=== PATIENT | female | born 1975 | race Caucasian/White ===

== ENCOUNTER 2018-06-27 01:02 | Inpatient (IN) | payer OTHER, SELFPAY ==
[2018-06-27 01:08] VITALS: BP 155/116; PULSE 65; RESP 16; TEMP 36.8
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
[2018-06-27] MEDS: Haloperidol 5 MG TAB PO (01:32)
[2018-06-27] MEDS: LORazepam 1 MG TAB PO (01:32)
--- NOTE | 2018-06-27 01:47 | PDOC.ERCMPRO ---
Date of Service: 06/27/18 Time of Service: 01:47 Care Management Progress Note Daphne is a 42 year old female currently being evaluated in the ED and awaiting mental health evaluation. Dr. Valenzuela requesting an interim safety plan be put into place while Daphne is being evaluated for SI/HI and awaiting medical clearance. Daphne was brought to the ED by [facility] for psychiatric evaluation and stabilization. The following safety plan is being initiated and a licensed one on one has been requested to observe Daphne while in the ED. Interim Safety Plan: 1. Daphne will be placed in paper clothing and have all personal belongings removed from the room. 2. Daphne will be supervised at all times by licensed [employer] trained staff RUPA OCONNOR, RN 3. Paper plates, cups and finger foods only. 4. Visitors at the discretion of ED provider, and dependent on Daphne?s level of engagement and stability. 5. Follow [facility] policy managing the behavior health patient. 6. Daphne to be supervised at all times while out of the room including to and from the bathroom. 7. Comfort bath system for hygiene. Daphne will remain in the ED at this time while awaiting mental health evaluation and medical clearance. Please contact manager park emergency communications officer and [facility] for changes in the Interim safety plan.
--- NOTE | 2018-06-27 02:17 | CMPROGNOTE_ITS ---
Date of Service: 06/27/18 Time of Service: 01:47 Care Management Progress Note Daphne is a 42 year old female currently being evaluated in the ED and awaiting mental health evaluation. Dr. Valenzuela requesting an interim safety plan be put into place while Daphne is being evaluated for SI/HI and awaiting medical clearance. Daphne was brought to the ED by [facility] for psychiatric evaluation and stabilization. The following safety plan is being initiated and a licensed one on one has been requested to observe Daphne while in the ED. Interim Safety Plan: 1. Daphne will be placed in paper clothing and have all personal belongings removed from the room. 2. Daphne will be supervised at all times by licensed [employer] trained staff RUPA OCONNOR , RN 3. Paper plates, cups and finger foods only. 4. Visitors at the discretion of ED provider, and dependent on Daphne s level of engagement and stability. 5. Follow [facility] policy managing the behavior health patient. 6. Daphne to be supervised at all times while out of the room including to and from the bathroom. 7. Comfort bath system for hygiene. Daphne will remain in the ED at this time while awaiting mental health evaluation and medical clearance. Please contact account manager sales representative ammunition officer and [facility] for changes in the Interim safety plan.
[2018-06-27] MEDS: Haloperidol 5 MG/ML VIAL IM (02:30)
[2018-06-27] MEDS: LORazepam 2 MG/ML VIAL 1 MG IM (02:30)
[2018-06-27 03:05] VITALS: PULSE 92; O2SAT 99
[2018-06-27 03:27] LABS: Abs Immature Grans 0.04 k/cumm (0.0-0.09); Absolute Eosinophil Count 0.04 k/cumm (0.0-0.7); Absolute Lymphocyte Count 1.67 k/cumm (1.2-3.4); Absolute Monocyte Count 0.95 k/cumm (0.11-0.7); Basophils % 0.2; Eosinophils % 0.3; HCT 46.6 % (36.0-46.0); HGB 16.6 g/dL (12.0-15.5); Immature Grans % 0.3; Lymphocytes % 13.5; Mean Corp. HGB Concentration 35.6 g/dL (32.0-36.0); Mean Corpuscular Hemoglobin 32.4 pg (27.0-33.0); Mean Corpuscular Volume 90.8 fL (80-95); Monocytes % 7.7; Platelet Count 195 x1000/uL (130-400); RBC 5.13 m/cumm (4.00-5.20); RBC Distribution Width 12.9 % (11.7-14.6); White Blood Cell Count 12.37 k/cumm (4.4-10.8)
[2018-06-27 03:28] VITALS: RESP 16
[2018-06-27 03:42] LABS: Absolute Basophil Count 0.02 k/cumm (0.0-0.2); Absolute Neutrophil Count 9.65 k/cumm (1.2-6.7)
[2018-06-27 04:04] LABS: ALT 38 U/L (12-78); AST 26 U/L (15-37); Albumin 3.7 g/dL (3.4-5.0); Alkaline Phosphatase 59 U/L (46-116); Anion Gap 10.6 mmol/L (3-11); BUN 12 mg/dL (7-18); Bilirubin, Total 0.6 mg/dL (0.2-1.0); CO2 26.4 mmol/L (21.0-32.0); CREATININE 0.96 mg/dL (0.55-1.02); Calcium 8.9 mg/dL (8.5-10.1); Chloride 101 mmol/L (98-107); Glucose 110 mg/dL (70-100); Potassium 4.1 mmol/L (3.5-5.1); Sodium 138 mmol/L (136-145); TSH 0.87 uIU/mL (0.358-3.74); Total Protein 7.4 g/dL (6.4-8.2)
[2018-06-27 04:11] LABS: ETHANOL BLOOD < 3.0 mg/dL (<3)
[2018-06-27 04:18] LABS: Salicylate 9.8 mg/dL (2.8-20.0)
[2018-06-27 04:20] LABS: Acetaminophen < 2 ug/mL (10-30)
[2018-06-27 04:22] LABS: HCG Qual (Serum) Negative
[2018-06-27 06:12] VITALS: RESP 20
[2018-06-27 06:52] LABS: Salicylate 8.8 mg/dL (2.8-20.0)
--- NOTE | 2018-06-27 06:52 | NUR.NOTE ---
Nursing Note: pt sitting on her bed, head down. pt observer present. mental health has left the room.
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
--- NOTE | 2018-06-27 08:30 | NUR.NOTE ---
Nursing Note: pt standing outside room, wants to know what it will take to get her out of hospital. not easily redirected into room, but eventually returned to room. observer with pt.
--- NOTE | 2018-06-27 09:56 | NUR.NOTE ---
Nursing Note: observer with pt. mental health here. pt frequently in doorway asking for me to call someone . observer tells me she wants nicotine-cigarette and pt then says she does not want it. talks rapidly and hard to understand. currently laying down.
--- NOTE | 2018-06-27 12:06 | NUR.NOTE ---
Nursing Note: pt is sleeping at the moment. up frequently in the doorway. asking that we contact Faisal and others so that she can leave this facility.
--- NOTE | 2018-06-27 13:59 | NUR.NOTE ---
Nursing Note: has been up to the bathroom. asked to give some urine. pt statesnot happening-I have to do the other. asking for her purse, states she is a [place] citizen. back to her room with observer.
--- NOTE | 2018-06-27 15:15 | ED.FU ---
Disposition Clinical Impression: Psychosis Disposition: STILL A PATIENT Condition: Stable Medical Decision Making - Lab Data Laboratory Tests 06/27/18 06/27/18 06/27/18 03:20 03:20 03:20 WBC 12.37 H RBC 5.13 Hgb 16.6 H Hct 46.6 H MCV 90.8 MCH 32.4 MCHC 35.6 RDW 12.9 Plt Count 195 MPV 12.0 H Immature Gran % 0.3 Neutrophils % 78.0 Lymphocytes % 13.5 Monocytes % 7.7 Eosinophils % 0.3 Basophils % 0.2 Absolute Neutrophils 9.65 H Absolute Lymphocytes 1.67 Absolute Monocytes 0.95 H Absolute Eosinophils 0.04 Absolute Basophils 0.02 Sodium 138 Potassium 4.1 Chloride 101 Carbon Dioxide 26.4 Anion Gap 10.6 BUN 12 Creatinine 0.96 Estimated GFR/1.73 m2 >= 60.00 Glucose 110 H Calcium 8.9 Total Bilirubin 0.6 AST 26 ALT 38 Alkaline Phosphatase 59 Total Protein 7.4 Albumin 3.7 TSH 0.87 Serum HCG, Qual Salicylates 9.8 Acetaminophen < 2 L Ethyl Alcohol < 3.0 06/27/18 06/27/18 03:20 06:25 WBC RBC Hgb Hct MCV MCH MCHC RDW Plt Count MPV Immature Gran % Neutrophils % Lymphocytes % Monocytes % Eosinophils % Basophils % Absolute Neutrophils Absolute Lymphocytes Absolute Monocytes Absolute Eosinophils Absolute Basophils Sodium Potassium Chloride Carbon Dioxide Anion Gap BUN Creatinine Estimated GFR/1.73 m2 Glucose Calcium Total Bilirubin AST ALT Alkaline Phosphatase Total Protein Albumin TSH Serum HCG, Qual Negative Salicylates 8.8 Acetaminophen Ethyl Alcohol Care Signed Out By:: Dr Valenzuela - Continuation of Care Continuation of Care Plan: The patient was signed out to me by my colleague Dr. Valenzuela. My initial assessment the patient demonstrated clear signs of psychosis. She was walking around, speaking out of context, and not making any sense. She demonstrated notable evidence of paranoia. Her speech was pressured. She did not demonstrate clear understanding many of the scenarios occurring around her. She clearly demonstrates evidence of acute psychosis. Unfortunately the EE written by Dr. Valenzuela did not have the second sheet signed/page 5, and so I did perform a new EE. My findings on physical exam are consistent with Dr. Dickinson, and I agree with his assessment and plan of acute psychosis and the need for admission or placement. After a prolonged period here in the emergency department at 3 PM we again called out to all remaining facilities they did not have an option for transfer or admission at this time. Because of this, and the patient's prolonged stay the patient will be admitted to the floor. I discussed the case with Dr Solorzano, who agrees to accept the patient. I have extensively reviewed the treatment plan with the patient. I have addressed all patient concerns at this time. I have also discussed the plan with the admitting physician and they agree with the current assessment and plan and have agreed to assume responsibility for the patient. All parties demonstrate verbal understanding and agreement with our assessment and plan at this time.
--- NOTE | 2018-06-27 15:20 | PDOC.ERCMPRO ---
Care Management Progress Note 06/27-Huddle in ED. Present: Delmi Nursing Occupational Nurse, Brandy PINA, Dr. Tam, Estelita [facility], and this CM. Referral was faxed to [facility] but they have declined at this time stating she is too acute. Patient will be admitted to the second floor. Daphne is an EE and the second cert is supposed to happen after 5 tonight. New Care Plan discussed and will be put into place. Dr. Tam will speak with the hospitalist as patient will be admitted to the second floor. Delmi Nursing Occupational Nurse will set up a licensed patient sitter. [facility] will continue to look for bed availability. Care Plan 06/27/18 Emergency Evaluation (EE) 1. Daphne may remain in her own clothing. 2. No personal belongings in room. 3. Daphne will be supervised at all times by licensed [employer] trained staff RUPA OCONNOR RN 4. Paper plates, cups and finger foods only. 5. Visitors at the discretion of medical provider, and dependent on Daphne?s level of engagement and stability. 6. Follow [facility] policy managing the behavior health patient. 7. Daphne to have supervised bathroom privileges. 8. Comfort bath system for hygiene. 9. No phone at this time. 10. Patient may have television if available. Patient is on EE status. Please follow this care plan. Any issues or changes to this care plan, please notify [facility] configuration management manager Apprentice Stylist, [phone] and [facility] propeller layout worker, [phone].
--- NOTE | 2018-06-27 15:33 | CMPROGNOTE_ITS ---
Care Management Progress Note 06/27-Huddle in ED. Present: Delmi Nursing Orthopedic Assistant, Brandy PINA, Dr. Tam, Estelita [facility], and this CM. Referral was faxed to [facility] but they have declined at this time stating she is too acute. Patient will be admitted to the second floor. Daphne is an EE and the second cert is supposed to happen after 5 tonight. New Care Plan discussed and will be put into place. Dr. Tam will speak with the hospitalist as patient will be admitted to the second floor. Delmi Nursing Orthopedic Assistant will set up a licensed patient sitter. [facility] will continue to look for bed availability. Care Plan 06/27/18 Emergency Evaluation (EE) 1. Daphne may remain in her own clothing. 2. No personal belongings in room. 3. Daphne will be supervised at all times by licensed [employer] trained staff RUPA OCONNOR RN 4. Paper plates, cups and finger foods only. 5. Visitors at the discretion of medical provider, and dependent on Daphne s level of engagement and stability. 6. Follow [facility] policy managing the behavior health patient. 7. Daphne to have supervised bathroom privileges. 8. Comfort bath system for hygiene. 9. No phone at this time. 10. Patient may have television if available. Patient is on EE status. Please follow this care plan. Any issues or changes to this care plan, please notify [facility] vendor management consultant Sewer Pipe Layer Helper, [phone] and [facility] retail worker, [phone].
[2018-06-27 16:20] VITALS: BP 116/76; PULSE 100; RESP 22; TEMP 36.3; O2SAT 97
--- NOTE | 2018-06-27 16:50 | NUR.NOTE ---
Nursing Note: Patient very irritated at this nurse, asking this nurse to leave and cursing, but not yelling or threatening. She is currently drying the floor with a towel. This nurse will reapproach at a later time and offer PRN medication.
--- NOTE | 2018-06-27 17:05 | NUR.NOTE ---
Nursing Note: Patient fixated on retrieving her pocketbook and states there might be something important in there that I need. Staff reassured that her belongings were secure and that they would be returned to her at time of discharge. Patient offered PRN PO medication, which patient refused. Patient continues to be clear about wanting to be left alone, but is not yelling, aggressive, or threatening. This nurse will continue to reapproach and monitor.
--- NOTE | 2018-06-27 17:06 | PDOC.HP ---
Date of Service: 06/27/18 Time of Service: 17:06 Assessment/Plan - Assessment/Plan (1) Psychosis Plan: With a reported history of schizophrenia and nonadherence to her medication regimen. It is unclear what she typically takes for medications. She is unable to provide information. Plan to attempt to gather more information, possibly the her primary care provider and/or pharmacy to determine more about her medical history and usual medications. Mental health will continue to seek bed placement at a psychiatric facility. She will have Ativan and Haldol available for as needed use for anxiety associated with her psychosis. She does have a safety plan in place. She has a one-to-one patient observer which will be continued. She had mild leukocytosis on labs today. Plan to reassess complete blood count tomorrow. Plan to keep her safe until a bed at a psychiatric facility is available. She is on EE status History of Present Illness - History of Present Illness Chief Complaint: Psychosis History of Present Illness: Daphne Schultz is a 42 year old female with a reported history of schizophrenia who was brought to the emergency department by [place] [employer] police early this morning. Apparently [facility] police was called to a field where she and her boyfriend have been camping in a field. Her boyfriend reported to the [facility] police that she has a history of schizophrenia and she has not been taking her medication. Her boyfriend reported to the police that he was unable to calm her, she was speaking nonstop, not making sense, she was screaming and yelling and then whispering, she was referring to herself the third person. The emergency department was unable to ascertain any type of medical or surgical history or what medications she normally takes. An EKG was obtained, she was noted to be in normal sinus rhythm at a rate of 100 bpm. She had normal QT segment. She had evidence of right atrial enlargement. She had no acute ST changes. Her laboratory studies in the emergency department were unremarkable. Her initial aspirin level was 10, repeat level was 8.8. The emergency department attempted to get a urine drug screen but when she got up to the bathroom she dumped the urine collection container. She was medically cleared by the emergency department physician. She was seen by [facility]. EEG papers were completed by the ER physician. Mental health attempted to place her at a psychiatric facility for stabilization, however, they were unable to find a bed for her. She was in the emergency department for several hours. She is now admitted to the [facility] floor on observation status. She will be followed by mental health, mental health will continue to attempt to place her. Of note she did have some loose pills in the bottom of her purse. She had one propanolol 20 mg tablet and 2 trazodone 50 mg tablets. She also had multiple cigarette butts. 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 The majority of this information was obtained via the chart from the emergency department. - Past Medical History Past Medical History: Patient reports no past medical history (Daphne is unable to give a medical or surgical history due to her acute psychosis at the present time.) - Past Surgical History Past Surgical History: Other (Unable to obtain due to acute psychosis.) - Past Family History Family History: Other (Unable to obtain due to acute psychosis.) - Past Social History Smoke: # pack years (She is reportedly a current everyday smoker.) Drugs: Other (Urine drug screen is ordered, nursing has been unable to obtain a urine specimen as of yet.) Review of Systems - Review of Systems Other: Unable to obtain a review of systems as patient is in acute psychosis and although her words are clear she is not making any sense. - Medications/Allergies Allergies/Adverse Reactions: Allergies Allergy/AdvReac Type Severity Reaction Status Date / Time Unable to Assess Allergy Verified 06/27/18 03:08 Medications: Current Medications Acetaminophen (Tylenol) 325 - 650 mg PO Q4H PRN PRN Al Hydrox/Mg Hydrox/Simethicone (Mylanta Liquid) 30 ml PO Q2H PRN PRN Albuterol Sulfate (Proventil Updraft) 2.5 mg UPD Q2H PRN PRN Albuterol/Ipratropium (Duoneb Updraft) 3 ml UPD Q6H PRN PRN Dimethicone/Zinc Oxide (Nelsy Protect Cream) 0 gm TP PRN PRN Docusate Sodium (Colace) 100 mg PO TID PRN PRN Haloperidol (Haldol) Confirm Administered Dose 5 mg .ROUTE .DM PRN Haloperidol (Haldol) 5 mg PO TID PRN PRN Haloperidol Lactate (Haldol Injection) 5 mg IM Q4H PRN PRN IV Miscellaneous Supplies () 1 each IV DIRECTED RANCHO Lorazepam (Ativan) Confirm Administered Dose 1 mg .ROUTE .DM PRN Lorazepam (Ativan) 1 mg PO TID PRN PRN Lorazepam (Ativan Injection) 1 mg IM Q3H PRN PRN Magnesium Hydroxide (Milk Of Magnesia) 30 ml PO DAILY PRN PRN Polyethylene Glycol (Miralax) 17 gm PO DAILY PRN PRN PRN Reason: Constipation Sodium Chloride (Saline Flush 10 Ml Syringe) 0 ml IVP PRN PRN Objective - Exam Vitals and I&O: Vital Signs Temp 36.3 C L 06/27/18 16:20 Pulse 100 H 06/27/18 16:20 Resp 22 06/27/18 16:20 BP 116/76 06/27/18 16:20 Pulse Ox 97 06/27/18 16:20 Intake & Output 06/26/18 06/27/18 06/27/18 23:59 11:59 23:59 Other: Comment Hat placed in toilet to collect urine for UDS. Pt dumped urine and threw out hat stating No thank you Voiding Methods Toilet General: Alert, No acute distress. denies: Oriented x3, Cooperative HEENT: Atraumatic, Mucous membr. moist/pink Neck: Supple Neurological: Normal gait, Normal speech (Speech is clear, however, she does not make any sense.) Results - Laboratory Data Result Diagrams: 06/27/18 03:20 06/27/18 03:20 Laboratory Results: Laboratory Tests 06/27/18 06/27/18 06/27/18 03:20 03:20 03:20 WBC 12.37 H RBC 5.13 Hgb 16.6 H Hct 46.6 H MCV 90.8 MCH 32.4 MCHC 35.6 RDW 12.9 Plt Count 195 MPV 12.0 H Immature Gran % 0.3 Neutrophils % 78.0 Lymphocytes % 13.5 Monocytes % 7.7 Eosinophils % 0.3 Basophils % 0.2 Absolute Neutrophils 9.65 H Absolute Lymphocytes 1.67 Absolute Monocytes 0.95 H Absolute Eosinophils 0.04 Absolute Basophils 0.02 Sodium 138 Potassium 4.1 Chloride 101 Carbon Dioxide 26.4 Anion Gap 10.6 BUN 12 Creatinine 0.96 Estimated GFR/1.73 m2 >= 60.00 Glucose 110 H Calcium 8.9 Total Bilirubin 0.6 AST 26 ALT 38 Alkaline Phosphatase 59 Total Protein 7.4 Albumin 3.7 TSH 0.87 Serum HCG, Qual Salicylates 9.8 Acetaminophen < 2 L Ethyl Alcohol < 3.0 06/27/18 06/27/18 03:20 06:25 WBC RBC Hgb Hct MCV MCH MCHC RDW Plt Count MPV Immature Gran % Neutrophils % Lymphocytes % Monocytes % Eosinophils % Basophils % Absolute Neutrophils Absolute Lymphocytes Absolute Monocytes Absolute Eosinophils Absolute Basophils Sodium Potassium Chloride Carbon Dioxide Anion Gap BUN Creatinine Estimated GFR/1.73 m2 Glucose Calcium Total Bilirubin AST ALT Alkaline Phosphatase Total Protein Albumin TSH Serum HCG, Qual Negative Salicylates 8.8 Acetaminophen Ethyl Alcohol
--- NOTE | 2018-06-27 18:06 | NUR.NOTE ---
Nursing Note: 1605 pt has refused vital signs to be taken. has eaten potato chips, a sandwich, several cups of coffee and several glasses of water. has been to the bathroom several times and refuses to give us a urine.
--- NOTE | 2018-06-27 18:29 | PDOC.CMPRO ---
Care Management Progress Note 06/27-Second Cert for EE status. Present was Daphne, Dr. Moore via computer, Viola from [facility], and this CM. Dr. Petra Moore tried interviewing Daphne this evening. She would not cooperate with Dr. Moore and answer questions. Daphne repeatedly stated, Grouping, man of my choice or someone me and my daughter Irene. Daphne kept repeating and using the word grouping. At one point stating, Grouping, what I want is a grouping, man woman and child of my choice. Again, Dr Moore tried asking questions and at that point, Daphne pushed the computer away and stated she was not going to talk to Dr Moore anymore stating, She knows my story. Dr. Moore has stated that patient will remain on EE status. [facility] will continue to look for an appropriate bed for Daphne. Currently, [facility] was the only facility with a bed available today and they have declined accepting patient. Rebekah on med/surg. Present in [facility], Lisbeth RN, Chanda RN clinical coordinator, Viola [facility], and this CM. Discussion was to change the care plan to say no visitors at this time. Faisal, who is Daphne's boyfriend and was with her in [facility] (believe he is the one that called P) would like to visit her but Daphne states she is waiting for Faisal to come and take her home. So at this time, it was felt that Faisal should not come this evening and visitors could be reassessed in am. New care plan formulated. Care Plan 06/27/18 Emergency Evaluation (EE) 1. Daphne may remain in her own clothing. 2. No personal belongings in room. 3. Daphne will be supervised at all times by licensed [facility] trained staff RUPA OCONNOR, RN 4. Paper plates, cups and finger foods only. 5. No visitors at this time. 6. Follow [facility] policy managing the behavior health patient. 7. Daphne to have supervised bathroom privileges. 8. Comfort bath system for hygiene. 9. No phone at this time. 10. Patient may have television if available. Patient is on EE status. Please follow this care plan. Any issues or changes to this care plan, please notify [facility] data governance consultant Dining Room Tables Set Up Attendant, [phone] and [facility] sheet metal worker helper, [phone].
--- NOTE | 2018-06-27 18:31 | NUR.NOTE ---
Nursing Note: Patient speech is nonsensical and thought process is disorganized. She is fixated on finding someone that she can pay to rent a room, and she states she is looking for her and her daughter. This nurse offered food and drink. Patient initially declined, and later indicated she would like a cup of coffee. This nurse gave patient a cup of decaf coffee with cream and sugar in a paper cup and offered patient a bag of chips or pretzels and patient declined. Patient whispered, This is what we agreed on, a cup of coffee. I'm looking for my and daughter. You are not my daughter, you're a nurse who brought me coffee and now you can leave. Patient looking anxious and leaning away from this nurse. Patient declined PO medication. This nurse will continue to monitor.
--- NOTE | 2018-06-27 18:40 | CMPROGNOTE_ITS ---
Care Management Progress Note 06/27-Second Cert for EE status. Present was Daphne, Dr. Moore via computer, Viola from [facility], and this CM. Dr. Petra Moore tried interviewing Daphne this evening. She would not cooperate with Dr. Moore and answer questions. Daphne repeatedly stated, Grouping, man of my choice or someone me and my daughter Irene. Daphne kept repeating and using the word grouping. At one point stating, Grouping, what I want is a grouping, man woman and child of my choice. Again, Dr Moore tried asking questions and at that point, Daphne pushed the computer away and stated she was not going to talk to Dr Moore anymore stating, She knows my story. Dr. Moore has stated that patient will remain on EE status. [facility] will continue to look for an appropriate bed for Daphne. Currently, [facility] was the only facility with a bed available today and they have declined accepting patient. Rebekah on med/surg. Present in [facility], Lisbeth RN, Chanda RN clinical coordinator , Viola [facility], and this CM. Discussion was to change the care plan to say no visitors at this time. Faisal, who is Daphne's boyfriend and was with her in [facility] (believe he is the one that called P) would like to visit her but Daphne states she is waiting for Faisal to come and take her home. So at this time, it was felt that Faisal should not come this evening and visitors could be reassessed in am. New care plan formulated. Care Plan 06/27/18 Emergency Evaluation (EE) 1. Daphne may remain in her own clothing. 2. No personal belongings in room. 3. Daphne will be supervised at all times by licensed [facility] trained staff RUPA OCONNOR , RN 4. Paper plates, cups and finger foods only. 5. No visitors at this time. 6. Follow [facility] policy managing the behavior health patient. 7. Daphne to have supervised bathroom privileges. 8. Comfort bath system for hygiene. 9. No phone at this time. 10. Patient may have television if available. Patient is on EE status. Please follow this care plan. Any issues or changes to this care plan, please notify [facility] ton container filler Cable Ferry Operator, [phone] and [facility] community action worker, [phone].
--- NOTE | 2018-06-27 19:55 | PDOC.MHCN ---
Date of Service: 06/27/18 Time of Service: 18:30 Presenting Issue: *How did they arrive here at ER and why did they come: [facility] Police bring patient to the ER during the director of early childhood education hours due to delusions and hallucinations. Patient is subsequently placed on involuntary status. Precipitating Factors: *Assessment of Safety SI/HI (address delusions if pertaining to the SI/HI) I am present at the hospital tonight to attend the Second Certification by Psychiatrist. Patient is uncooperative and does not answer questions regarding SI/HI. She talks about grouping with a man, woman and a child and perseverates on the idea of grouping. She at times is impossible to understand as her speech is a word salad. After meeting for approximately [address] Petra Moore, psychiatrist, via video conference, patient says she is done talking and she asks that everyone leave her room. Disposition: *Behavior: Uncooperative. *Eye Contact: Intermittent. *Mood: Labile. *Affect: Irritable and anxious. *Appetite: Unknown. *Sleep (trouble falling/staying asleep): Poor. Plan: Dr. Moore, psychiatrist, signs the Second Certification by Psychiatrist. Estelita Moore, [facility] daytime campus president, did bed checks late afternoon and advised that no beds are available. Patient will therefore remain at [facility] on EE status until a psych bed can be secured for her.
--- NOTE | 2018-06-27 20:02 | PDOC.MHCN_ITS ---
Date of Service: 06/27/18 Time of Service: 18:30 Presenting Issue: *How did they arrive here at ER and why did they come: [facility] Police bring patient to the ER during the tobacco classer hours due to delusions and hallucinations. Patient is subsequently placed on involuntary status. Precipitating Factors: *Assessment of Safety SI/HI (address delusions if pertaining to the SI/HI) I am present at the hospital tonight to attend the Second Certification by Psychiatrist. Patient is uncooperative and does not answer questions regarding SI/HI. She talks about grouping with a man, woman and a child and perseverates on the idea of grouping. She at times is impossible to understand as her speech is a word salad. After meeting for approximately [address] Petra Moore, psychiatrist, via video conference, patient says she is done talking and she asks that everyone leave her room. Disposition: *Behavior: Uncooperative. *Eye Contact: Intermittent. *Mood: Labile. *Affect: Irritable and anxious. *Appetite: Unknown. *Sleep (trouble falling/staying asleep): Poor. Plan: Dr. Moore, psychiatrist, signs the Second Certification by Psychiatrist. Estelita Moore, [facility] daytime yard coupler, did bed checks late afternoon and advised that no beds are available. Patient will therefore remain at [facility] on EE status until a psych bed can be secured for her.
--- NOTE | 2018-06-27 20:07 | NUR.NOTE ---
Spoke with Significant other Faisal Souza , who was able to provide me with patients history and what led up to todays events. He is adamant that when the psychiatrist Truong Busby from [facility] in [facility] changed Daphne to Abilify and took her off Depakote that that was the turning point in which Daphne began to lose control of her Schizophrenia. With the side effects of Abilify the MD attempted Trazadone and then Benadryl to help with symptom management but those just caused Daphne to become dazed and confused. He states Daphne has 5 brothers and sisters of which several of them suffer from some sort of mental illness where they will do well for a period of time then relapse every couple of years. Faisal also provided me with the number to [facility] whom I called to get an updated medication list. The pharmacist who's name I believe was Twan called me back and provided the medication list that is now added to the patients home medication list in [facility]. Twan states the last time he filled medications for Daphne was in March of 2018, and has not filled a Depakote ER scripts since September of 2017 which was 1000 mg every evening. Twan and Faisal both state that Daphne has no known drug allergies. Faisal states many years ago Daphne would take Xanax when she wok up, at noon, 1700 and Bedtime which kept her even keeled. Faisal also mentioned cogentin as helpful to manage side effect, yet the pharmacist did not mention that in her current med list. Faisal did not think the propranolol was helping at all. Faisal seemed encouraged that [facility] was taking interest in helping Daphne and hopes we can get her back to her usual state of health.
[2018-06-28 07:19] LABS: HCT 46.9 % (36.0-46.0); HGB 16.6 g/dL (12.0-15.5); Mean Corp. HGB Concentration 35.4 g/dL (32.0-36.0); Mean Corpuscular Hemoglobin 32.2 pg (27.0-33.0); Mean Corpuscular Volume 91.1 fL (80-95); Mean Platelet Volume 12.6 fL (8.0-11.0); Platelet Count 202 x1000/uL (130-400); RBC 5.15 m/cumm (4.00-5.20); RBC Distribution Width 12.9 % (11.7-14.6); White Blood Cell Count 10.19 k/cumm (4.4-10.8)
[2018-06-28 07:57] VITALS: BP 148/84; PULSE 102; RESP 16; TEMP 36.6; O2SAT 95
--- NOTE | 2018-06-28 08:49 | PDOC.CMPRO ---
Care Management Progress Note 06/28-Called [facility] this am. No beds available outside their area. They are only accepting referrals from their ED. Called [facility] and spoke with Alex. Alex stated he is not sure if they will be able to accept any EE's today but requested referral be faxed along with both certifications for review. Patient was admitted to the second floor last evening. Called Briseyda, inpatient CM who stated she will fax the referral to Alex.
--- NOTE | 2018-06-28 10:58 | PHARADMIT ---
Addendum entered by Chas Burleson III 07/06/18 10:42: Taking meds, No VS No BM No med changes EE status Original Note: Addendum entered by Lynda Nino 07/05/18 12:11: pt continues to take meds no VS or labs no med changes EE Status continues while awaiting placement Original Note: Addendum entered by Lynda Nino 07/04/18 15:15: pt taking meds again per morning report VS okay, valproic acid level yesterday evening was 18.3 EE Status continues while awaiting placement Original Note: Addendum entered by Chas Burleson III 07/03/18 10:42: No VS, No Labs (refused draw, wanted to check Valproic Acid level) Refused Meds....Had Hallucinations overnight. EE Status continues while awaiting placement Original Note: Addendum entered by Lynda Nino 07/02/18 09:34: VS okay, no labs quetiapine dose increased from 50 mg BID to 100 mg BID this morning possible bed opening on Tuesday per CM? Original Note: Addendum entered by Lynda Nino 07/01/18 09:49: HR-107 other VS okay, no labs no med changes waiting for a bed to open up Original Note: Addendum entered by Katie Santos 06/30/18 17:11: awaiting bed in psychiatric facility Original Note: Addendum entered by Chas Burleson III 06/29/18 11:06: ACUTE PSYCHOSIS PATIENT FROM [facility]. HERE ON EE-STATUS PER MENTAL HEALTH. CM UNABLE TO FIND PSYCH BED AT THIS TIME. VS-OK No Labs HOME MEDS NOT ORDERED Original Note: Admission Pharmacy Clinical Review ACUTE PSYCHOSIS , on EE STATUS Code Status Full Code Current Weight Wgt- ?? Renally Cleared and Narrow Therapeutic Index Meds CrCl~ ? QTc Value / Action Taken QTc-454 na BP Control, Fever BP- 148/84 Tmax- 36.6C Electrolytes reviewed Na- 138 K+4.1 DVT Prophylaxis none Opiate Usage / Scheduled Bowel Regimen Ordered No Yes Plt/SCr for Heparin / Enoxaparin Plts-202 SCr- 0.96 INR for Warfarin na H/H stable, WBC/Bands H&H- 16.6/46.9 WBC-10.19 Antibiotic appropriateness none Cultures and Sensitivities none Surgical ABX d/c within 24 hr na DM control / Insulin Dosing BG-110 Heart Failure (Check EF%) (HUMERA's, B-Block, Diuretics) none IV to PO Switch No Home Meds Reviewed Yes Home Meds Not Ordered Faby Atkins, Meron, Benadryl, Inderal, Vit-D, Trazodone Comments
--- NOTE | 2018-06-28 11:34 | PDOC.CMPRO ---
Date of Service: 06/28/18 Time of Service: 13:55 Care Management Progress Note S/O: CM met with aDphne in her room. Cadre is present at doorway. Daphne is currently on EE and is not able to answer questions or engage in conversation at this time. Daphne was provided 5 dry erase markers per her request. Addition will be added to pt's safety plan. Huddle at 1355 with Nursing Supervisors Jules, Lisbeth PINA, Estelita [facility] and Kath PINA CM. Referrals faxed to [facility] and [facility]. Vonda from [facility] has declined pt. [facility] has declined. [facility] has no availability. CM spoke with [facility] regarding pt's insurance, as pt is unable to supply such information at this time. Per [facility], Daphne's Medicaid ID is [id number]. CM faxed information to [facility]. CM spoke with Daphne's partner, Faisal, who would like permission to speak with Daphne. CM advised that [facility] and CM will phone him with decision. Decided that not appropriate for pt to speak on phone; CM advised Faisal. A: 42 year old female admitted with acute psychosis. P: Daphne remains as an involuntary admission awaiting placement at psychiatric facility. Pt will transport via [facility] when bed available. CM will continue to provide support to patient, family and care team regarding discharge planning and disposition. SAFETY PLAN: 06/28/2018 A.T. INVOLUNTARY FOR INPATIENT PSYCHIATRIC STABILIZATION 1. May remain in her own clothing. 2. Supervision at all times by ELVIN, SURETY BOND AGENT handcrew foreman. 3. May have paper cups, plates, finger foods as well as a metal spoon with which to eat meals. [facility] staff will be responsible for accounting of utensils after meals. 4. Comfort bath system in room with supervision. 5. No personal belongings in the room 6. May have television and dry erase markers. 7. No visitors at this time. 8. Follow [facility] Management of the Admitted Behavioral Health Patient policy printed and attached to the safety plan in physical chart. [facility] will be coordinating placement at inpatient facility. Patient is currently involuntarily at [facility] and seeking inpatient admission when a bed becomes available. [facility] Frontline Instrument Mechanics Supervisor will continue seeking placement. Please contact the General Machinist Loft Worker Head ([phone]) and [facility] Instrument Mechanics Supervisor ([phone]) for any needed changes in the Safety Plan. Safety plan has been provided to interdepartmental care team including Clinical Coordinator, Nursing Production Underwriter. - MH Services (Omit if N/A) Current MH Services: Psychiatric Inp
--- NOTE | 2018-06-28 11:52 | CMPROGNOTE_ITS ---
Date of Service: 06/28/18 Time of Service: 13:55 Care Management Progress Note S/O: CM met with Daphne in her room. Cadre is present at doorway. Daphne is currently on EE and is not able to answer questions or engage in conversation at this time. Daphne was provided 5 dry erase markers per her request. Addition will be added to pt's safety plan. Huddle at 1355 with Nursing Supervisors Jules, Lisbeth PINA, Estelita [facility] and Kath PINA CM. Referrals faxed to [facility] and [facility]. Vonda from [facility] has declined pt. [facility] has declined. [facility] has no availability. CM spoke with [facility] regarding pt's insurance, as pt is unable to supply such information at this time. Per [facility], Daphne's Medicaid ID is [id number]. CM faxed information to [facility]. CM spoke with Daphne's partner, Faisal, who would like permission to speak with Daphne. CM advised that request would be discussed at [facility] and CM will phone him with decision. Decided that not appropriate for pt to speak on phone; CM advised Faisal. A: 42 year old female admitted with acute psychosis. P: Daphne remains as an involuntary admission awaiting placement at psychiatric facility. Pt will transport via Early Education Teacher when bed available. CM will continue to provide support to patient, family and care team regarding discharge planning and disposition. SAFETY PLAN: 06/28/2018 A.T. INVOLUNTARY FOR INPATIENT PSYCHIATRIC STABILIZATION 1. May remain in her own clothing. 2. Supervision at all times by ELVIN, PENSION ADMINISTRATOR cableway operator. 3. May have paper cups, plates, finger foods as well as a metal spoon with which to eat meals. [facility] staff will be responsible for accounting of utensils after meals. 4. Comfort bath system in room with supervision. 5. No personal belongings in the room 6. May have television and dry erase markers. 7. No visitors at this time. 8. Follow [facility] Management of the Admitted Behavioral Health Patient policy printed and attached to the safety plan in physical chart. [facility] will be coordinating placement at inpatient facility. Patient is currently involuntarily at [facility] and seeking inpatient admission when a bed becomes available. [facility] Frontline Floral Assistant will continue seeking placement. Please contact the Irrigator Gravity Flow Brick Baker ([phone]) and [facility] Floral Assistant ([phone]) for any needed changes in the Safety Plan. Safety plan has been provided to interdepartmental care team including Clinical Coordinator, Nursing Chief Construction Inspector. - MH Services (Omit if N/A) Current MH Services: Psychiatric Inp
--- NOTE | 2018-06-28 16:20 | PDOC.PROG ---
Date of Service: 06/28/18 Time of Service: 16:20 Assessment/Plan - Assessment/Plan (1) Psychosis Plan: With a reported history of schizophrenia and nonadherence to her medication regimen. We were able to get a medication list from her pharmacy, however, the conversation with her significant other reveals that she did well on Depakote ER. We will trial her on her previous dose of Depakote if she agrees to take the medication. Mental health will continue to seek bed placement at a psychiatric facility. She will have Ativan and Haldol available for as needed use for anxiety associated with her psychosis. She does have a safety plan in place. She has a one-to-one patient observer which will be continued. History of Present Illness - History of Present Illness Chief Complaint: Psychosis History of Present Illness: Daphne Schultz is a 42 year old female with a history of schizophrenia who is currently here on EE status for psychosis. She was brought in by [facility] Police after they were called to a field in [facility] where she and her boyfriend were camping. Her boyfriend was unable to calm her, she was speaking nonstop, she was not making any sense, she was yelling and referring to herself in the third person. He reported to the police that Daphne has not been taking her medication. Nursing was able to speak to her boyfriend, Faisal, and obtain some information including the name of her pharmacy and PCP. Faisal reported that she previously did well on Depakote ER. We have placed her on Depakote at her previous dose. She continues to ramble on, talking nonstop, not making any sense. She has a safety plan in place, she has a cadre present. Mental health is working to get her placed at a psychiatric facility. Review of Systems - Review of Systems Other: Daphne is unable to engage in a review of systems due to acute psychosis. - Medications/Allergies Allergies/Adverse Reactions: Allergies Allergy/AdvReac Type Severity Reaction Status Date / Time No Known Allergies Allergy Unverified 06/27/18 20:36 Medications: Current Medications Acetaminophen (Tylenol) 325 - 650 mg PO Q4H PRN PRN Al Hydrox/Mg Hydrox/Simethicone (Mylanta Liquid) 30 ml PO Q2H PRN PRN Albuterol Sulfate (Proventil Updraft) 2.5 mg UPD Q2H PRN PRN Albuterol/Ipratropium (Duoneb Updraft) 3 ml UPD Q6H PRN PRN Dimethicone/Zinc Oxide (Nelsy Protect Cream) 0 gm TP PRN PRN Divalproex Sodium (Depakote Er) 1,000 mg PO HS RANCHO Docusate Sodium (Colace) 100 mg PO TID PRN PRN Haloperidol (Haldol) 5 mg PO TID PRN PRN Haloperidol Lactate (Haldol Injection) 5 mg IM Q4H PRN PRN Lorazepam (Ativan) 1 mg PO TID PRN PRN Lorazepam (Ativan Injection) 1 mg IM Q3H PRN PRN Magnesium Hydroxide (Milk Of Magnesia) 30 ml PO DAILY PRN PRN Nicotine (Nicotrol) 10 mg IH Q2H PRN PRN Nicotine (Nicoderm Cq) 14 mg TD DAILY PRN PRN Polyethylene Glycol (Miralax) 17 gm PO DAILY PRN PRN PRN Reason: Constipation Objective - Exam Vitals and I&O: Vital Signs Temp 36.6 C 06/28/18 07:57 Pulse 102 H 06/28/18 07:57 Resp 16 06/28/18 07:57 BP 148/84 06/28/18 07:57 Pulse Ox 95 06/28/18 07:57 Intake & Output 06/27/18 06/28/18 06/28/18 23:59 11:59 23:59 Intake Total 600 Balance 600 Intake: Oral 600 Other: Urine Color Pale Yellow Urine Appearance Clear Comment Patient did void a few times overnight per interlibrary loan specialist nurse. Voiding Methods Toilet General: Alert, No acute distress, Other (She is speaking nonstop, she is not making any sense. She is writing all over the white board.). denies: Oriented x3, Cooperative HEENT: Atraumatic, Mucous membr. moist/pink Neurological: Normal gait, Normal speech (speech is clear but she does not make any sense.), Strength at 5/5 X4 ext, Normal tone Other physical findings: She did not allow me to assess her. - Results Results: Laboratory Results WBC 10.19 k/cumm (4.4-10.8) 06/28/18 06:40 RBC 5.15 m/cumm (4.00-5.20) 06/28/18 06:40 Hgb 16.6 g/dL (12.0-15.5) H 06/28/18 06:40 Hct 46.9 % (36.0-46.0) H 06/28/18 06:40 MCV 91.1 fL (80-95) 06/28/18 06:40 MCH 32.2 pg (27.0-33.0) 06/28/18 06:40 MCHC 35.4 g/dL (32.0-36.0) 06/28/18 06:40 RDW 12.9 % (11.7-14.6) 06/28/18 06:40 Plt Count 202 x1000/uL (130-400) 06/28/18 06:40 MPV 12.6 fL (8.0-11.0) H 06/28/18 06:40 Immature Gran % 0.3 06/27/18 03:20 Neutrophils % 78.0 06/27/18 03:20 Lymphocytes % 13.5 06/27/18 03:20 Monocytes % 7.7 06/27/18 03:20 Eosinophils % 0.3 06/27/18 03:20 Basophils % 0.2 06/27/18 03:20 Absolute Neutrophils 9.65 k/cumm (1.2-6.7) H 06/27/18 03:20 Absolute Lymphocytes 1.67 k/cumm (1.2-3.4) 06/27/18 03:20 Absolute Monocytes 0.95 k/cumm (0.11-0.7) H 06/27/18 03:20 Absolute Eosinophils 0.04 k/cumm (0.0-0.7) 06/27/18 03:20 Absolute Basophils 0.02 k/cumm (0.0-0.2) 06/27/18 03:20 Sodium 138 mmol/L (136-145) 06/27/18 03:20 Potassium 4.1 mmol/L (3.5-5.1) 06/27/18 03:20 Chloride 101 mmol/L (98-107) 06/27/18 03:20 Carbon Dioxide 26.4 mmol/L (21.0-32.0) 06/27/18 03:20 Anion Gap 10.6 mmol/L (3-11) 06/27/18 03:20 BUN 12 mg/dL (7-18) 06/27/18 03:20 Creatinine 0.96 mg/dL (0.55-1.02) 06/27/18 03:20 Estimated GFR/1.73 m2 >= 60.00 (mL/min/1.73m2) 06/27/18 03:20 Glucose 110 mg/dL (70-100) H 06/27/18 03:20 Calcium 8.9 mg/dL (8.5-10.1) 06/27/18 03:20 Total Bilirubin 0.6 mg/dL (0.2-1.0) 06/27/18 03:20 AST 26 U/L (15-37) 06/27/18 03:20 ALT 38 U/L (12-78) 06/27/18 03:20 Alkaline Phosphatase 59 U/L (46-116) 06/27/18 03:20 Total Protein 7.4 g/dL (6.4-8.2) 06/27/18 03:20 Albumin 3.7 g/dL (3.4-5.0) 06/27/18 03:20 TSH 0.87 uIU/mL (0.358-3.74) 06/27/18 03:20 Serum HCG, Qual Negative 06/27/18 03:20 Salicylates 8.8 mg/dL (2.8-20.0) 06/27/18 06:25 Acetaminophen < 2 ug/mL (10-30) L 06/27/18 03:20 Ethyl Alcohol < 3.0 mg/dL (<3) 06/27/18 03:20
--- NOTE | 2018-06-28 16:45 | ERMH_ITS ---
Presenting issue: *How did they arrive here at ER and why did they come: The patient arrived yesterday by police for concerning behavior related to mental health disturbances. Precipitating Factors: *Assessment of Safety SI / HI- (Address delusions if pertaining to the SI/ HI) This copy writer is unable to assess for SI/HI as the patient is not able to answer any questions directed towards her. The patient is inaudible and is rambling. Disposition: [] *Behavior: Inaudible rambling standing in the middle of the room facing this copy writer *Eye Contact: This patient made little to no eye contact with this copy writer *Mood: Calm *Affect: Flat to liable *Appetite: Patient was eating when this copy writer first arrived *Sleep (trouble falling/staying asleep): Unknown Plan: (please elaborate and include that physician is consulted with plan and/ or placement): Patient will remain on an involuntary status and will be transported to a mental health treatment facility when a bed becomes available. Provisional Diagnosis:(only if required by physician): [] AXIS 5 Case Handover: Done with ED nurse (name): [] Date & Time [] Huddle: done with ED staff (for boarding clients): [] Yes [] No Date /Time [] Referral for Case management: Has phone call for introduction been made [] Yes [] No Referral in EMR: Done and sent? [] Yes [] NO Clinicians Name and title and Signature: [Estelita Moore [facility] Eercy Clinician] Make sure that you are photocopying and submitting this to [facility] records dept.to be scanned into chart
[2018-06-28] MEDS: Divalproex Sodium 250 MG TAB.ER.24H 1000 MG PO (21:53)
[2018-06-28] MEDS: LORazepam 1 MG TAB PO (23:25)
[2018-06-28] MEDS: Haloperidol 5 MG TAB PO (23:25)
--- NOTE | 2018-06-29 06:16 | NUR.NOTE ---
Nursing Note: Patient able to take depakote scheduled at HS with no effect, patient became anxious, kicking staff and continuously rambling and unaudible voice with mixed words. At around 2330 hrs., Ativan and haldol po PRN given and well tolerated. Medications with mild effect on pt.Closely monitored and pt able to have short interval of naps on bed and chair. Slight redirection rendered and followed verbal instruction with presenting behavior of anxious and suspicious. Also hallucinations noted when awake. Ice coffee taken per request. Had episode of exposing herself naked infront of the door. Sitter continuously on the sight.
[2018-06-29 07:05] VITALS: O2SAT 96
[2018-06-29 07:42] VITALS: BP 135/98; PULSE 99; RESP 20; TEMP 36; O2SAT 98
--- NOTE | 2018-06-29 11:41 | ERMH_ITS ---
Presenting issue: *How did they arrive here at ER and why did they come: Patient arrived at the Emergency room via Police a few days ago for mental heal disturbances. Precipitating Factors: *Assessment of Safety SI / HI- (Address delusions if pertaining to the SI/ HI) This lyric writer is unable to assess for SI/HI as the patient is not able to answer any questions this lyric writer asks. Disposition: *Behavior: Patient is willing to have this lyric writer in her room. She is sitting on the bed telling this lyric writer about how it is almost pay day for her to receive her SSI and how she gives all of this money to Faisal (her significant other). She is rambling about this topic and is not able to be redirected. *Eye Contact: Patient makes little to no eye contact with this lyric writer *Mood: Initially calm but appears to be agitated when talking about her Faisal (significant other) *Affect: Flat *Appetite: Good *Sleep (trouble falling/staying asleep): Hospital staff states that she is only sleeping in 30min increments Plan: (please elaborate and include that physician is consulted with plan and/ or placement): Patient will remain on EE status until a bed becomes available at a mental health treatment facility. Provisional Diagnosis:(only if required by physician): [] AXIS 5 Case Handover: Done with ED nurse (name): [] Date & Time [] Huddle: done with ED staff (for boarding clients): [] Yes [] No Date /Time [] Referral for Case management: Has phone call for introduction been made [] Yes [] No Referral in EMR: Done and sent? [] Yes [] NO Clinicians Name and title and Signature: [Estelita Moore [facility] - Emergency Clinician] Make sure that you are photocopying and submitting this to [facility] records dept.to be scanned into chart
--- NOTE | 2018-06-29 13:31 | PDOC.CMPRO ---
Date of Service: 06/29/18 Time of Service: 13:38 Care Management Progress Note S/O: Daphne is standing in her doorway throughout the day today. She is more conversive today, though will only answer one question at a time. CM spoke with PRABHAKAR Capone, whom states that she was able to speak with Daphne though was unable to access SI/HI as Daphne would not discuss this. CM spoke with Wali and Kaylah who both do not have availability for today. [facility] has reviewed the referral which was sent today and they have declined at this time though will reevaluate in the morning. Huddle held, those in attendance: Jennifer (RN CC), Naomie (RN Manager Cancer), Lisbeth (RN), Estelita (PRABHAKAR), and this CM. Reviewed the above as well as the care plan and changes were made accordingly. A: 42 year old female admitted with acute psychosis. P: Daphne remains as an involuntary admission awaiting placement at psychiatric facility. Pt will transport via Dining Car [facility] when bed available. CM will continue to provide support to patient, family and care team regarding discharge planning and disposition. SAFETY PLAN: 06/28/2018 A.T. INVOLUNTARY FOR INPATIENT PSYCHIATRIC STABILIZATION 1. May remain in her own clothing. 2. Pt to remain in the room at this time under direct Supervision at all times by ELVIN, FOOD AND BEVERAGE MANAGER forensic accountant. 3. May have paper cups, plates, finger foods as well as a metal spoon with which to eat meals. [facility] staff will be responsible for accounting of utensils after meals. 4. Comfort bath system in room with supervision. 5. No personal belongings in the room 6. May have television and dry erase markers. 7. No visitors at this time. 8. Follow [facility] Management of the Admitted Behavioral Health Patient policy printed and attached to the safety plan in physical chart. 9. No phone at this time. [facility] will be coordinating placement at inpatient facility. Patient is currently involuntarily at [facility] and seeking inpatient admission when a bed becomes available. [facility] Frontline Wheel And Axle Inspector will continue seeking placement. Please contact the Electrical Lineman Customer Service Correspondence Clerk ([phone]) and [facility] Wheel And Axle Inspector ([phone]) for any needed changes in the Safety Plan. Safety plan has been provided to interdepartmental care team including Clinical Coordinator, Nursing Manager Cancer.
--- NOTE | 2018-06-29 14:20 | CMPROGNOTE_ITS ---
Date of Service: 06/29/18 Time of Service: 13:38 Care Management Progress Note S/O: Daphne is standing in her doorway throughout the day today. She is more conversive today, though will only answer one question at a time. CM spoke with PRABHAKAR Capone, whom states that she was able to speak with Daphne though was unable to access SI/HI as Daphne would not discuss this. CM spoke with Wali and Kaylah who both do not have availability for today. [facility] has reviewed the referral which was sent today and they have declined at this time though will reevaluate in the morning. Huddle held, those in attendance: Jennifer (RN CC), Naomie (RN Line Pilot), Lisbeth (RN), Estelita (PRABHAKAR), and this CM. Reviewed the above as well as the care plan and changes were made accordingly. A: 42 year old female admitted with acute psychosis. P: Daphne remains as an involuntary admission awaiting placement at psychiatric facility. Pt will transport via [facility] when bed available. CM will continue to provide support to patient, family and care team regarding discharge planning and disposition. SAFETY PLAN: 06/28/2018 A.T. INVOLUNTARY FOR INPATIENT PSYCHIATRIC STABILIZATION 1. May remain in her own clothing. 2. Pt to remain in the room at this time under direct Supervision at all times by ELVIN, COIN MACHINE COLLECTOR SUPERVISOR info print press operator. 3. May have paper cups, plates, finger foods as well as a metal spoon with which to eat meals. [facility] staff will be responsible for accounting of utensils after meals. 4. Comfort bath system in room with supervision. 5. No personal belongings in the room 6. May have television and dry erase markers. 7. No visitors at this time. 8. Follow [facility] Management of the Admitted Behavioral Health Patient policy printed and attached to the safety plan in physical chart. 9. No phone at this time. [facility] will be coordinating placement at inpatient facility. Patient is currently involuntarily at [facility] and seeking inpatient admission when a bed becomes available. [facility] Frontline Chemical Plant Manager will continue seeking placement. Please contact the Invasive Cardiovascular Technologist Rib Bender ([phone]) and [facility] Chemical Plant Manager ([phone]) for any needed changes in the Safety Plan. Safety plan has been provided to interdepartmental care team including Clinical Coordinator, Nursing Line Pilot.
--- NOTE | 2018-06-29 17:45 | PDOC.PROG ---
Date of Service: 06/29/18 Time of Service: 17:45 Assessment/Plan - Assessment/Plan (1) Psychosis Assessment: Her exact psychiatric diagnosis remains to be determined but reportedly she has a history of bipolar disorder. She seems to be better since she has been placed back on Depakote. I am going to adjust her dose upward slightly to 1250 mg nightly and add a low dose of Seroquel as well for her psychosis. Plan: Addition of Seroquel 50 mg twice a day. Continue Depakote and increased dose of 1250 mg nightly History of Present Illness - History of Present Illness Chief Complaint: Acute psychosis History of Present Illness: Patient is currently not hallucinating but still has disordered thinking process. She reports that she is no longer with her boyfriend who brought her in here but is fixated on going out with [place] who is the medical/surgical stewarding supervisor. She seems to have no insight as to how she ended up in the hospital. Her speech is whispered and she is afraid that have been able hear her conversation with me. Patient denies any other complaints such as auditory or visual hallucinations. She has no somatic complaints. Review of Systems - Medications/Allergies Allergies/Adverse Reactions: Allergies Allergy/AdvReac Type Severity Reaction Status Date / Time No Known Allergies Allergy Unverified 06/27/18 20:36 Medications: Current Medications Acetaminophen (Tylenol) 325 - 650 mg PO Q4H PRN PRN Al Hydrox/Mg Hydrox/Simethicone (Mylanta Liquid) 30 ml PO Q2H PRN PRN Albuterol Sulfate (Proventil Updraft) 2.5 mg UPD Q2H PRN PRN Albuterol/Ipratropium (Duoneb Updraft) 3 ml UPD Q6H PRN PRN Dimethicone/Zinc Oxide (Nelsy Protect Cream) 0 gm TP PRN PRN Divalproex Sodium (Depakote Er) 1,000 mg PO HS RANCHO Last Admin: 06/28/18 21:53 Dose: 1,000 mg Docusate Sodium (Colace) 100 mg PO TID PRN PRN Haloperidol (Haldol) 5 mg PO TID PRN PRN Last Admin: 06/28/18 23:25 Dose: 5 mg Haloperidol Lactate (Haldol Injection) 5 mg IM Q4H PRN PRN Lorazepam (Ativan) 1 mg PO TID PRN PRN Last Admin: 06/28/18 23:25 Dose: 1 mg Lorazepam (Ativan Injection) 1 mg IM Q3H PRN PRN Magnesium Hydroxide (Milk Of Magnesia) 30 ml PO DAILY PRN PRN Nicotine (Nicotrol) 10 mg IH Q2H PRN PRN Nicotine (Nicoderm Cq) 14 mg TD DAILY PRN PRN Polyethylene Glycol (Miralax) 17 gm PO DAILY PRN PRN PRN Reason: Constipation Objective - Exam Vitals and I&O: Vital Signs Temp 36 C L 06/29/18 07:42 Pulse 99 H 06/29/18 07:42 Resp 20 06/29/18 07:42 BP 135/98 06/29/18 07:42 Pulse Ox 98 06/29/18 07:42 Intake & Output 06/28/18 06/29/18 06/29/18 23:59 11:59 23:59 Intake Total 240 180 Balance 240 180 Intake: Oral 240 180 General: Alert, Cooperative, No acute distress, Other (Oriented to person in place in that she knows she is in the hospital but not time or circumstance) Neurological: Other (No tremors) Psych/Mental Status: Other (Mood is calm her speech is quiet but her conversation is tangential to my questions) - Results Results: Laboratory Results WBC 10.19 k/cumm (4.4-10.8) 06/28/18 06:40 RBC 5.15 m/cumm (4.00-5.20) 06/28/18 06:40 Hgb 16.6 g/dL (12.0-15.5) H 06/28/18 06:40 Hct 46.9 % (36.0-46.0) H 06/28/18 06:40 MCV 91.1 fL (80-95) 06/28/18 06:40 MCH 32.2 pg (27.0-33.0) 06/28/18 06:40 MCHC 35.4 g/dL (32.0-36.0) 06/28/18 06:40 RDW 12.9 % (11.7-14.6) 06/28/18 06:40 Plt Count 202 x1000/uL (130-400) 06/28/18 06:40 MPV 12.6 fL (8.0-11.0) H 06/28/18 06:40 Immature Gran % 0.3 06/27/18 03:20 Neutrophils % 78.0 06/27/18 03:20 Lymphocytes % 13.5 06/27/18 03:20 Monocytes % 7.7 06/27/18 03:20 Eosinophils % 0.3 06/27/18 03:20 Basophils % 0.2 06/27/18 03:20 Absolute Neutrophils 9.65 k/cumm (1.2-6.7) H 06/27/18 03:20 Absolute Lymphocytes 1.67 k/cumm (1.2-3.4) 06/27/18 03:20 Absolute Monocytes 0.95 k/cumm (0.11-0.7) H 06/27/18 03:20 Absolute Eosinophils 0.04 k/cumm (0.0-0.7) 06/27/18 03:20 Absolute Basophils 0.02 k/cumm (0.0-0.2) 06/27/18 03:20 Sodium 138 mmol/L (136-145) 06/27/18 03:20 Potassium 4.1 mmol/L (3.5-5.1) 06/27/18 03:20 Chloride 101 mmol/L (98-107) 06/27/18 03:20 Carbon Dioxide 26.4 mmol/L (21.0-32.0) 06/27/18 03:20 Anion Gap 10.6 mmol/L (3-11) 06/27/18 03:20 BUN 12 mg/dL (7-18) 06/27/18 03:20 Creatinine 0.96 mg/dL (0.55-1.02) 06/27/18 03:20 Estimated GFR/1.73 m2 >= 60.00 (mL/min/1.73m2) 06/27/18 03:20 Glucose 110 mg/dL (70-100) H 06/27/18 03:20 Calcium 8.9 mg/dL (8.5-10.1) 06/27/18 03:20 Total Bilirubin 0.6 mg/dL (0.2-1.0) 06/27/18 03:20 AST 26 U/L (15-37) 06/27/18 03:20 ALT 38 U/L (12-78) 06/27/18 03:20 Alkaline Phosphatase 59 U/L (46-116) 06/27/18 03:20 Total Protein 7.4 g/dL (6.4-8.2) 06/27/18 03:20 Albumin 3.7 g/dL (3.4-5.0) 06/27/18 03:20 TSH 0.87 uIU/mL (0.358-3.74) 06/27/18 03:20 Serum HCG, Qual Negative 06/27/18 03:20 Salicylates 8.8 mg/dL (2.8-20.0) 06/27/18 06:25 Acetaminophen < 2 ug/mL (10-30) L 06/27/18 03:20 Ethyl Alcohol < 3.0 mg/dL (<3) 06/27/18 03:20
--- NOTE | 2018-06-29 19:00 | NUR.NOTE ---
Spoke with Faisal Serna's significant other who was inquiring about her. He was encouraged to hear she was back on the Depakote. Faisal strongly suggests she go back on the xanax when waking up, at noon, at 1700 and again at bedtime. Faisal states insomnia makes her symptoms worse and sleep would help significantly. He will call again tomorrow to check on her. He appears to be concerned about her ongoing well being. Faisal states well, maybe we will be able to go to [place] and tie the knot after all.
[2018-06-29] MEDS: LORazepam 1 MG TAB PO (21:35)
[2018-06-29] MEDS: Divalproex Sodium 250 MG TAB.ER.24H 1000 MG PO (21:36)
[2018-06-29] MEDS: QUEtiapine 25 MG TAB 50 MG PO (21:43)
[2018-06-30] MEDS: Divalproex Sodium 250 MG TAB.ER.24H PO ×2 (00:07→21:28)
--- NOTE | 2018-06-30 07:44 | PDOC.CMIN ---
Date of Service: 06/28/18 Time of Service: 07:44 Care Management Initial Assess REASON FOR HOSPITALIZATION:: Acute psychosis. PAST MEDICAL HISTORY/PAST SURGICAL HISTORY:: No information known. PREVIOUS FUNCTIONAL STATUS/SOCIAL/FAMILY SUPPORTS:: Daphne is on EE status for acute psychosis. She is unwilling/able to engage in conversation so much of her history is unknown to this CM. She is in [place] on vacation, camping in a field with her boyfriend, Faisal. Daphne is from [place] and according to Faisal, does well when she takes her meds, but she has not been taking them. ADVANCE DIRECTIVES:: None on file at [facility]. Has patient been provided with information about the portal?: No Did the patient sign up for the portal?: No CODE STATUS:: Full Code INSURANCE COVERAGE / FINANCIAL ISSUES:: Medicaid ([place]). CURRENT HOME/COMMUNITY SERVICES/EQUIPMENT:: No current community services known. PRIMARY CARE PHYSICIAN:: None local. PATIENT/FAMILY EDUCATION NEEDS:: Discharge education and any limitations. Ask Me Three discussion. ANTICIPATED BARRIERS TO DISCHARGE:: No anticipated discharge. TRANSPORTATION:: Daphne will transport via labor relations specialist to an inpatient [facility] facility when a bed becomes available. PLAN:: Daphne will go to an inpatient psychiatric facility when a bed is available. CM will continue to provide support to patient and careteam regarding discharge planning and disposition.
[2018-06-30] MEDS: QUEtiapine 25 MG TAB 50 MG PO ×2 (07:47→20:19)
--- NOTE | 2018-06-30 07:53 | INITIAL_ITS ---
Date of Service: 06/28/18 Time of Service: 07:44 Care Management Initial Assess REASON FOR HOSPITALIZATION:: Acute psychosis. PAST MEDICAL HISTORY/PAST SURGICAL HISTORY:: No information known. PREVIOUS FUNCTIONAL STATUS/SOCIAL/FAMILY SUPPORTS:: Daphne is on EE status for acute psychosis. She is unwilling/able to engage in conversation so much of her history is unknown to this CM. She is in [place] on vacation, camping in a field with her boyfriend, Faisal. Daphne is from [place] and according to Faisal, does well when she takes her meds, but she has not been taking them. ADVANCE DIRECTIVES:: None on file at [facility]. Has patient been provided with information about the portal?: No Did the patient sign up for the portal?: No CODE STATUS:: Full Code INSURANCE COVERAGE / FINANCIAL ISSUES:: [place] ([place]). CURRENT HOME/COMMUNITY SERVICES/EQUIPMENT:: No current community services known. PRIMARY CARE PHYSICIAN:: None local. PATIENT/FAMILY EDUCATION NEEDS:: Discharge education and any limitations. Ask Me Three discussion. ANTICIPATED BARRIERS TO DISCHARGE:: No anticipated discharge. TRANSPORTATION:: Daphne will transport via network/telecom engineer to an inpatient [facility] facility when a bed becomes available. PLAN:: Daphne will go to an inpatient psychiatric facility when a bed is available. CM will continue to provide support to patient and careteam regarding discharge planning and disposition.
--- NOTE | 2018-06-30 07:53 | PDOC.CMPRO ---
Date of Service: 06/30/18 Time of Service: 07:53 Care Management Progress Note S/O: Daphne has spent time standing in her doorway and lying in bed sleeping for short periods of time. She has been taking her scheduled medications. Plan of care and safety plan unchanged at this time. A: 42 year old female admitted with acute psychosis. P: Daphne remains as an involuntary admission awaiting placement at psychiatric facility. Pt will transport via [facility]ger when bed available. CM will continue to provide support to patient, family and care team regarding discharge planning and disposition. SAFETY PLAN: 06/30/2018 A.T. INVOLUNTARY FOR INPATIENT PSYCHIATRIC STABILIZATION Huddle at 06/30/2018 at 10:30am. Members included PRABHAKAR Capone, Kelsi, RN, Fabiola, RN, Kath PINA CM, Melly, Nursing Consulting Application Engineer, ARGENIS Rain, Manuel, Jose Corbett?s Department, Jennifer QUACH. 1. May remain in her own clothing. 2. Pt to remain in the room at this time under direct Supervision at all times by ELVIN, CERTIFIED FIRST ASSISTANT porter head. 3. May have paper cups, plates, finger foods as well as a metal spoon with which to eat meals. [facility] staff will be responsible for accounting of utensils after meals. 4. Comfort bath system in room with supervision. 5. No personal belongings in the room 6. May have television and dry erase markers. 7. No visitors at this time. 8. No phone at this time. 9.Follow [facility] Management of the Admitted Behavioral Health Patient policy printed and attached to the safety plan in physical chart. [facility] will be coordinating placement at inpatient facility. Patient is currently involuntarily at [facility] and seeking inpatient admission when a bed becomes available. [facility] Frontline Beauty Culturist Apprentice will continue seeking placement. Please contact the Swine Genetics Researcher On Line Csr ([phone]) and [facility] Beauty Culturist Apprentice ([phone]) for any needed changes in the Safety Plan. Safety plan has been provided to interdepartmental care team including Clinical Coordinator, Nursing Consulting Application Engineer. - MH Services (Omit if N/A) Current MH Services: Psychiatric Inp
[2018-06-30 08:01] VITALS: BP 139/95; PULSE 89; RESP 18; TEMP 36.7; O2SAT 97
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
--- NOTE | 2018-06-30 11:45 | ERMH_ITS ---
Presenting issue: *How did they arrive here at ER and why did they come: Patient initially arrived to the Emergency Room via police for mental health disturbances. Precipitating Factors: *Assessment of Safety SI / HI- (Address delusions if pertaining to the SI/ HI) Patient is unable to directly answer any questions this keno writer asks. This patient quickly dismisses this keno writer and will no longer talk with this keno writer. Disposition: *Behavior: Patient is sitting on the hospital talking to this keno writer. The patient is rambling about the view, the hospital food, and having a cigarette. *Eye Contact: Patient makes little to no eye contact with this keno writer *Mood: Calm *Affect: Flat *Appetite: Good *Sleep (trouble falling/staying asleep): Hospital staff states that she has been sleeping more regularly Plan: (please elaborate and include that physician is consulted with plan and/ or placement): Patient will remain at the hospital on involuntary status until a bed becomes available at a mental health treatment facility. Provisional Diagnosis:(only if required by physician): [] AXIS 5 Case Handover: Done with ED nurse (name): [] Date & Time [] Huddle: done with ED staff (for boarding clients): [] Yes [] No Date /Time [] Referral for Case management: Has phone call for introduction been made [] Yes [] No Referral in EMR: Done and sent? [] Yes [] NO Clinicians Name and title and Signature: [Estelita Moore - [facility] Emergency Clinician] Make sure that you are photocopying and submitting this to [facility] records dept.to be scanned into chart
--- NOTE | 2018-06-30 14:05 | PDOC.PROG_ITS ---
Date of Service: 06/30/18 Time of Service: 10:40 Assessment/Plan - Assessment/Plan (1) Psychosis Plan: Continue depakote and seroquel. Mental health and CM working on placement. History of Present Illness - History of Present Illness History of Present Illness: Daphne is a 42 yo patient currently admitted for acute psychosis. She is unable to participate much in her history and exam. Has obvious disorganized thought process and whispers throughout much of our time together making it extremely difficult to understand her. Appears comfortable in bed. Has no specific complaints that I can gather. Does not appear to be hallucinating, but does seem suspicious of her cadre. Review of Systems - Review of Systems Constitutional: Other (unable to obtain ROS as patient is unable to participate) - Medications/Allergies Allergies/Adverse Reactions: Allergies Allergy/AdvReac Type Severity Reaction Status Date / Time No Known Allergies Allergy Unverified 06/27/18 20:36 Medications: Current Medications Acetaminophen (Tylenol) 325 - 650 mg PO Q4H PRN PRN Al Hydrox/Mg Hydrox/Simethicone (Mylanta Liquid) 30 ml PO Q2H PRN PRN Albuterol Sulfate (Proventil Updraft) 2.5 mg UPD Q2H PRN PRN Albuterol/Ipratropium (Duoneb Updraft) 3 ml UPD Q6H PRN PRN Dimethicone/Zinc Oxide (Nelsy Protect Cream) 0 gm TP PRN PRN Divalproex Sodium (Depakote Er) 1,000 mg PO [facility] Last Admin: 06/29/18 21:36 Dose: 1,000 mg Divalproex Sodium (Depakote Er) 250 mg PO [facility] Last Admin: 06/30/18 00:07 Dose: 250 mg Docusate Sodium (Colace) 100 mg PO TID PRN PRN Haloperidol (Haldol) 5 mg PO TID PRN PRN Last Admin: 06/28/18 23:25 Dose: 5 mg Haloperidol Lactate (Haldol Injection) 5 mg IM Q4H PRN PRN Lorazepam (Ativan) 1 mg PO TID PRN PRN Last Admin: 06/29/18 21:35 Dose: 1 mg Lorazepam (Ativan Injection) 1 mg IM Q3H PRN PRN Magnesium Hydroxide (Milk Of Magnesia) 30 ml PO DAILY PRN PRN Nicotine (Nicotrol) 10 mg IH Q2H PRN PRN Nicotine (Nicoderm Cq) 14 mg TD DAILY PRN PRN Polyethylene Glycol (Miralax) 17 gm PO DAILY PRN PRN PRN Reason: Constipation Quetiapine Fumarate (Seroquel) 50 mg PO BID [facility] Last Admin: 06/30/18 07:47 Dose: 50 mg Objective - Exam Vitals and I&O: Vital Signs Temp 36.7 C 06/30/18 08:01 Pulse 89 06/30/18 08:01 Resp 18 06/30/18 08:01 BP 139/95 06/30/18 08:01 Pulse Ox 97 06/30/18 08:01 Intake & Output 06/29/18 06/30/18 06/30/18 23:59 11:59 23:59 Intake Total 660 900 240 Balance 660 900 240 Intake: Oral 660 900 240 Other: Comment Patient voiding in toilet independently. Voiding Methods Toilet Toilet General: Alert, Other (uncooperative, A/Ox1-2, does not answer questions appropriately) HEENT: Atraumatic, PERRLA, EOMI, Mucous membr. moist/pink Neck: Supple. denies: JVD, Thyromegaly, LAD, Other Lungs: Other (no increased WOB) Neurological: Other (nonfocal) Psych/Mental Status: Other (word salad, rapid and tangential speech) - Results Results: Laboratory Results WBC 10.19 k/cumm (4.4-10.8) 06/28/18 06:40 RBC 5.15 m/cumm (4.00-5.20) 06/28/18 06:40 Hgb 16.6 g/dL (12.0-15.5) H 06/28/18 06:40 Hct 46.9 % (36.0-46.0) H 06/28/18 06:40 MCV 91.1 fL (80-95) 06/28/18 06:40 MCH 32.2 pg (27.0-33.0) 06/28/18 06:40 MCHC 35.4 g/dL (32.0-36.0) 06/28/18 06:40 RDW 12.9 % (11.7-14.6) 06/28/18 06:40 Plt Count 202 x1000/uL (130-400) 06/28/18 06:40 MPV 12.6 fL (8.0-11.0) H 06/28/18 06:40 Immature Gran % 0.3 06/27/18 03:20 Neutrophils % 78.0 06/27/18 03:20 Lymphocytes % 13.5 06/27/18 03:20 Monocytes % 7.7 06/27/18 03:20 Eosinophils % 0.3 06/27/18 03:20 Basophils % 0.2 06/27/18 03:20 Absolute Neutrophils 9.65 k/cumm (1.2-6.7) H 06/27/18 03:20 Absolute Lymphocytes 1.67 k/cumm (1.2-3.4) 06/27/18 03:20 Absolute Monocytes 0.95 k/cumm (0.11-0.7) H 06/27/18 03:20 Absolute Eosinophils 0.04 k/cumm (0.0-0.7) 06/27/18 03:20 Absolute Basophils 0.02 k/cumm (0.0-0.2) 06/27/18 03:20 Sodium 138 mmol/L (136-145) 06/27/18 03:20 Potassium 4.1 mmol/L (3.5-5.1) 06/27/18 03:20 Chloride 101 mmol/L (98-107) 06/27/18 03:20 Carbon Dioxide 26.4 mmol/L (21.0-32.0) 06/27/18 03:20 Anion Gap 10.6 mmol/L (3-11) 06/27/18 03:20 BUN 12 mg/dL (7-18) 06/27/18 03:20 Creatinine 0.96 mg/dL (0.55-1.02) 06/27/18 03:20 Estimated GFR/1.73 m2 >= 60.00 (mL/min/1.73m2) 06/27/18 03:20 Glucose 110 mg/dL (70-100) H 06/27/18 03:20 Calcium 8.9 mg/dL (8.5-10.1) 06/27/18 03:20 Total Bilirubin 0.6 mg/dL (0.2-1.0) 06/27/18 03:20 AST 26 U/L (15-37) 06/27/18 03:20 ALT 38 U/L (12-78) 06/27/18 03:20 Alkaline Phosphatase 59 U/L (46-116) 06/27/18 03:20 Total Protein 7.4 g/dL (6.4-8.2) 06/27/18 03:20 Albumin 3.7 g/dL (3.4-5.0) 06/27/18 03:20 TSH 0.87 uIU/mL (0.358-3.74) 06/27/18 03:20 Serum HCG, Qual Negative 06/27/18 03:20 Salicylates 8.8 mg/dL (2.8-20.0) 06/27/18 06:25 Acetaminophen < 2 ug/mL (10-30) L 06/27/18 03:20 Ethyl Alcohol < 3.0 mg/dL (<3) 06/27/18 03:20
--- NOTE | 2018-06-30 15:34 | PDOC.MHCN ---
Date of Service: 06/30/18 Time of Service: 15:34 Presenting Issue: *How did they arrive here at ER and why did they come: Patient remains at [facility] on involuntary status. She was brought to the ER by [facility] Police Tuesday (06/27/18) due to erratic behavior and suicidal statements. Precipitating Factors: *Assessment of Safety SI/HI (address delusions if pertaining to the SI/HI) Patient reports she is doing well. She says she was invited to stay at [facility] so she's decided to move in as she likes it here. When asked about SI/HI, she asks if I am suggesting that she not hurt herself or others. When I tell her that I do not want her to hurt herself or others, she thanks me for being concerned about her well being and says she will remain safe. Disposition: *Behavior: Mostly cooperative. *Eye Contact: Intermittent. *Mood: Reports doing well. *Affect: Anxious. *Appetite: Unknown. *Sleep (trouble falling/staying asleep): Reports sleeping well. Plan: There are no available beds in [place]. Patient will remain at [facility] on involuntary status and [facility] will continue to search for a placement for her.
--- NOTE | 2018-06-30 15:38 | PDOC.MHCN_ITS ---
Date of Service: 06/30/18 Time of Service: 15:34 Presenting Issue: *How did they arrive here at ER and why did they come: Patient remains at [facility] on involuntary status. She was brought to the ER by [facility] Tuesday (06/27/18) due to erratic behavior and suicidal statements. Precipitating Factors: *Assessment of Safety SI/HI (address delusions if pertaining to the SI/HI) Patient reports she is doing well. She says she was invited to stay at [facility] so she's decided to move in as she likes it here. When asked about SI/HI, she asks if I am suggesting that she not hurt herself or others. When I tell her that I do not want her to hurt herself or others, she thanks me for being concerned about her well being and says she will remain safe. Disposition: *Behavior: Mostly cooperative. *Eye Contact: Intermittent. *Mood: Reports doing well. *Affect: Anxious. *Appetite: Unknown. *Sleep (trouble falling/staying asleep): Reports sleeping well. Plan: There are no available beds in [place]. Patient will remain at [facility] on involuntary status and [facility] will continue to search for a placement for her.
--- NOTE | 2018-06-30 19:32 | NUR.NOTE ---
Nursing Note: Patient spilled coffee on the floor and stepped in it. When CPSO entered the room to clean up coffee and offer patient clean socks. Patient was in the bathroom area apparently changing her clothes and became upset at the CPSO who entered her room. She began screaming and cursing at staff, and trying to close the door to her room. This nurse told patient that this was unacceptable behavior and that she needed to stop yelling and, if she will not allow staff to clean coffee off of the floor, that she clean the coffee off of the floor. Patient was able to calm herself down and cleaned coffee off of the floor. Will continue to monitor.
[2018-06-30 19:34] VITALS: BP 130/85; PULSE 107; RESP 18; TEMP 208.2; TEMP 97.9; O2SAT 94
[2018-06-30] MEDS: Divalproex Sodium 250 MG TAB.ER.24H 1000 MG PO (21:28)
[2018-06-30] MEDS: LORazepam 1 MG TAB PO (21:52)
[2018-06-30] MEDS: Haloperidol 5 MG TAB PO (21:53)
[2018-07-01 08:00] VITALS: BP 141/89; PULSE 107; RESP 20; TEMP 36.1; O2SAT 97
[2018-07-01] MEDS: QUEtiapine 25 MG TAB 50 MG PO ×2 (08:06→20:50)
[2018-07-01] MEDS: Haloperidol 5 MG TAB PO (11:27)
[2018-07-01] MEDS: LORazepam 1 MG TAB PO (11:27)
--- NOTE | 2018-07-01 11:30 | NUR.NOTE ---
Nursing Note: Pt asked this RN, what pills have I had today? RN explained she only had seroquel this AM, Pt then asked what else was available to her. This RN stated she could have both ativan and/or haldol per her choosing. Pt requested both at this time as well as iced coffee. Pt correctly identified both the haldol and the ativan pills and stated, this is going to make me chill out, right? This nurse confirmed and Pt took the medications without issue.
--- NOTE | 2018-07-01 15:25 | PDOC.CMPRO ---
Care Management Progress Note SAFETY PLAN: 07/01/2018 A.T. INVOLUNTARY FOR INPATIENT PSYCHIATRIC STABILIZATION No changes to safety plan at this time. Daphne remains unable to communicate effectively and appears to be battling internal stimuli during conversation attempts. She is suspicious of others and struggles to regulate appropriately. 1. May remain in her own clothing. 2. Pt to remain in the room at this time under direct Supervision at all times by ELVIN, AD OPERATIONS SPECIALIST cath laboratory technician. 3. May have paper cups, plates, finger foods as well as a metal spoon with which to eat meals. [facility] staff will be responsible for accounting of utensils after meals. 4. Comfort bath system in room with supervision. 5. No personal belongings in the room 6. May have television and dry erase markers. 7. No visitors at this time. 8. No phone at this time. 9.Follow [facility] Management of the Admitted Behavioral Health Patient policy printed and attached to the safety plan in physical chart. Last updates reported no bed availability until early next week. Liss [facility] reported [facility] continues to review, but has made no official bed offers. [facility] will be coordinating placement at inpatient facility. Patient is currently involuntarily at [facility] and seeking inpatient admission when a bed becomes available. [facility] Frontline Drum Stenciler will continue seeking placement. Please contact the Orthotist Prosthetist Technology Sales Representative ([phone]) and [facility] Drum Stenciler ([phone]) for any needed changes in the Safety Plan. Safety plan has been provided to interdepartmental care team including Clinical Coordinator, Nursing Manager Systems.
--- NOTE | 2018-07-01 15:30 | CMPROGNOTE_ITS ---
Care Management Progress Note SAFETY PLAN: 07/01/2018 A.T. INVOLUNTARY FOR INPATIENT PSYCHIATRIC STABILIZATION No changes to safety plan at this time. Daphne remains unable to communicate effectively and appears to be battling internal stimuli during conversation attempts. She is suspicious of others and struggles to regulate appropriately. 1. May remain in her own clothing. 2. Pt to remain in the room at this time under direct Supervision at all times by ELVIN, INFORMATION SYSTEMS COORDINATOR door repairer bus. 3. May have paper cups, plates, finger foods as well as a metal spoon with which to eat meals. [facility] staff will be responsible for accounting of utensils after meals. 4. Comfort bath system in room with supervision. 5. No personal belongings in the room 6. May have television and dry erase markers. 7. No visitors at this time. 8. No phone at this time. 9.Follow [facility] Management of the Admitted Behavioral Health Patient policy printed and attached to the safety plan in physical chart. Last updates reported no bed availability until early next week. Liss [facility] reported [facility] continues to review, but has made no official bed offers. [facility] will be coordinating placement at inpatient facility. Patient is currently involuntarily at [facility] and seeking inpatient admission when a bed becomes available. [facility] Frontline Forger Helper will continue seeking placement. Please contact the Cadd Drafter Coffee Attendant ([phone]) and [facility] Forger Helper ([phone]) for any needed changes in the Safety Plan. Safety plan has been provided to interdepartmental care team including Clinical Coordinator, Nursing Italian Tutor.
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
--- NOTE | 2018-07-01 15:37 | PDOC.PROG ---
Date of Service: 07/01/18 Time of Service: 15:00 Assessment/Plan - Assessment/Plan (1) Psychosis Plan: Continue anti-psychotics. Mental health and CM working on psychiatric placement. Discussed case with Dr. Solorzano who is in agreement. History of Present Illness - History of Present Illness History of Present Illness: Daphne is a 42 yo woman who is involuntarily admitted due to psychosis. Has ? bipolar or schizophrenia, however no psychiatric records available. Mental health is following for placement. Currently no beds available. Daphne is lying down in bed and is minimally participative in exam. Denies any complaints but requests I leave the room so she can rest. Review of Systems - Review of Systems Constitutional: Other (denies all complaints) - Medications/Allergies Allergies/Adverse Reactions: Allergies Allergy/AdvReac Type Severity Reaction Status Date / Time No Known Allergies Allergy Unverified 06/27/18 20:36 Medications: Current Medications Acetaminophen (Tylenol) 325 - 650 mg PO Q4H PRN PRN Al Hydrox/Mg Hydrox/Simethicone (Mylanta Liquid) 30 ml PO Q2H PRN PRN Albuterol Sulfate (Proventil Updraft) 2.5 mg UPD Q2H PRN PRN Albuterol/Ipratropium (Duoneb Updraft) 3 ml UPD Q6H PRN PRN Dimethicone/Zinc Oxide (Nelsy Protect Cream) 0 gm TP PRN PRN Divalproex Sodium (Depakote Er) 1,000 mg PO [facility] Last Admin: 06/30/18 21:28 Dose: 1,000 mg Divalproex Sodium (Depakote Er) 250 mg PO [facility] Last Admin: 06/30/18 21:28 Dose: 250 mg Docusate Sodium (Colace) 100 mg PO TID PRN PRN Haloperidol (Haldol) 5 mg PO TID PRN PRN Last Admin: 07/01/18 11:27 Dose: 5 mg Haloperidol Lactate (Haldol Injection) 5 mg IM Q4H PRN PRN Lorazepam (Ativan) 1 mg PO TID PRN PRN Last Admin: 07/01/18 11:27 Dose: 1 mg Lorazepam (Ativan Injection) 1 mg IM Q3H PRN PRN Magnesium Hydroxide (Milk Of Magnesia) 30 ml PO DAILY PRN PRN Nicotine (Nicotrol) 10 mg IH Q2H PRN PRN Nicotine (Nicoderm Cq) 14 mg TD DAILY PRN PRN Polyethylene Glycol (Miralax) 17 gm PO DAILY PRN PRN PRN Reason: Constipation Quetiapine Fumarate (Seroquel) 50 mg PO BID [facility] Last Admin: 07/01/18 08:06 Dose: 50 mg Objective - Exam Vitals and I&O: Vital Signs Temp 36.1 C L 07/01/18 08:00 Pulse 107 H 07/01/18 08:00 Resp 20 07/01/18 08:00 BP 141/89 07/01/18 08:00 Pulse Ox 97 07/01/18 08:00 Intake & Output 06/30/18 07/01/18 07/01/18 23:59 11:59 23:59 Intake Total 1919 1460 750 Balance 1919 1460 750 Intake: Oral 1919 146 750 Other: Urine Color Yellow Urine Appearance Clear Urine Odor Normal Voiding Methods Toilet Toilet Toilet General: Alert, Cooperative, No acute distress HEENT: Atraumatic, PERRLA, EOMI, Mucous membr. moist/pink Neck: Supple Lungs: Clear to auscultation, Normal air movement Cardiovascular: Regular rate, Normal S1, Normal S2. denies: Murmurs, Gallops, Rubs, Other Psych/Mental Status: Other (unable to fully assess, currently seems appropriate) - Results Results: Laboratory Results WBC 10.19 k/cumm (4.4-10.8) 06/28/18 06:40 RBC 5.15 m/cumm (4.00-5.20) 06/28/18 06:40 Hgb 16.6 g/dL (12.0-15.5) H 06/28/18 06:40 Hct 46.9 % (36.0-46.0) H 06/28/18 06:40 MCV 91.1 fL (80-95) 06/28/18 06:40 MCH 32.2 pg (27.0-33.0) 06/28/18 06:40 MCHC 35.4 g/dL (32.0-36.0) 06/28/18 06:40 RDW 12.9 % (11.7-14.6) 06/28/18 06:40 Plt Count 202 x1000/uL (130-400) 06/28/18 06:40 MPV 12.6 fL (8.0-11.0) H 06/28/18 06:40 Immature Gran % 0.3 06/27/18 03:20 Neutrophils % 78.0 06/27/18 03:20 Lymphocytes % 13.5 06/27/18 03:20 Monocytes % 7.7 06/27/18 03:20 Eosinophils % 0.3 06/27/18 03:20 Basophils % 0.2 06/27/18 03:20 Absolute Neutrophils 9.65 k/cumm (1.2-6.7) H 06/27/18 03:20 Absolute Lymphocytes 1.67 k/cumm (1.2-3.4) 06/27/18 03:20 Absolute Monocytes 0.95 k/cumm (0.11-0.7) H 06/27/18 03:20 Absolute Eosinophils 0.04 k/cumm (0.0-0.7) 06/27/18 03:20 Absolute Basophils 0.02 k/cumm (0.0-0.2) 06/27/18 03:20 Sodium 138 mmol/L (136-145) 06/27/18 03:20 Potassium 4.1 mmol/L (3.5-5.1) 06/27/18 03:20 Chloride 101 mmol/L (98-107) 06/27/18 03:20 Carbon Dioxide 26.4 mmol/L (21.0-32.0) 06/27/18 03:20 Anion Gap 10.6 mmol/L (3-11) 06/27/18 03:20 BUN 12 mg/dL (7-18) 06/27/18 03:20 Creatinine 0.96 mg/dL (0.55-1.02) 06/27/18 03:20 Estimated GFR/1.73 m2 >= 60.00 (mL/min/1.73m2) 06/27/18 03:20 Glucose 110 mg/dL (70-100) H 06/27/18 03:20 Calcium 8.9 mg/dL (8.5-10.1) 06/27/18 03:20 Total Bilirubin 0.6 mg/dL (0.2-1.0) 06/27/18 03:20 AST 26 U/L (15-37) 06/27/18 03:20 ALT 38 U/L (12-78) 06/27/18 03:20 Alkaline Phosphatase 59 U/L (46-116) 06/27/18 03:20 Total Protein 7.4 g/dL (6.4-8.2) 06/27/18 03:20 Albumin 3.7 g/dL (3.4-5.0) 06/27/18 03:20 TSH 0.87 uIU/mL (0.358-3.74) 06/27/18 03:20 Serum HCG, Qual Negative 06/27/18 03:20 Salicylates 8.8 mg/dL (2.8-20.0) 06/27/18 06:25 Acetaminophen < 2 ug/mL (10-30) L 06/27/18 03:20 Ethyl Alcohol < 3.0 mg/dL (<3) 06/27/18 03:20
[2018-07-01] MEDS: Divalproex Sodium 250 MG TAB.ER.24H 1000 MG PO (20:49)
[2018-07-01] MEDS: Divalproex Sodium 250 MG TAB.ER.24H PO (20:50)
[2018-07-02 07:35] VITALS: BP 108/64; PULSE 80; RESP 18; TEMP 36.8; O2SAT 99
[2018-07-02] MEDS: QUEtiapine 25 MG TAB 50 MG PO ×2 (07:58→15:05)
--- NOTE | 2018-07-02 09:39 | NUR.NOTE ---
Nursing Note: 0830: pt has been sleeping since breakfast; seroquel NOW order has not been given at this time r/t pt resting in bed
--- NOTE | 2018-07-02 12:05 | PDOC.CMPRO ---
Care Management Progress Note SAFETY PLAN: 07/02/2018 A.T. INVOLUNTARY FOR INPATIENT PSYCHIATRIC STABILIZATION No changes to safety plan at this time. Daphne has begun to have periods of appropriate communication per provider though she remains suspicious and presents with frustration marked with periods of cursing and confusion. 1. May remain in her own clothing. 2. Pt to remain in the room at this time under direct Supervision at all times by BUS DRIVER SCHOOL, MANAGER REPORTING raschel knitting machine operator. 3. May have paper cups, plates, finger foods as well as a metal spoon with which to eat meals. [facility] staff will be responsible for accounting of utensils after meals. 4. Comfort bath system in room with supervision. 5. No personal belongings in the room 6. May have television and dry erase markers. 7. No visitors at this time. 8. No phone at this time. 9.Follow [facility] Management of the Admitted Behavioral Health Patient policy printed and attached to the safety plan in physical chart. Last updates reported no bed availability. [facility] will be coordinating placement at inpatient facility. Patient is currently involuntarily at [facility] and seeking inpatient admission when a bed becomes available. [facility] Frontline Electrocardiogram Technician will continue seeking placement. Please contact the Stud Dairy Cattle Farmer Blunger Loader ([phone]) and [facility] Electrocardiogram Technician ([phone]) for any needed changes in the Safety Plan. Safety plan has been provided to interdepartmental care team including Clinical Coordinator, Nursing Tool Procurement Coordinator.
--- NOTE | 2018-07-02 12:06 | CMPROGNOTE_ITS ---
Care Management Progress Note SAFETY PLAN: 07/02/2018 A.T. INVOLUNTARY FOR INPATIENT PSYCHIATRIC STABILIZATION No changes to safety plan at this time. Daphne has begun to have periods of appropriate communication per provider though she remains suspicious and presents with frustration marked with periods of cursing and confusion. 1. May remain in her own clothing. 2. Pt to remain in the room at this time under direct Supervision at all times by GOLF CLUB REPAIRER, SSRS DEVELOPER correctional facility nurse. 3. May have paper cups, plates, finger foods as well as a metal spoon with which to eat meals. [facility] staff will be responsible for accounting of utensils after meals. 4. Comfort bath system in room with supervision. 5. No personal belongings in the room 6. May have television and dry erase markers. 7. No visitors at this time. 8. No phone at this time. 9.Follow [facility] Management of the Admitted Behavioral Health Patient policy printed and attached to the safety plan in physical chart. Last updates reported no bed availability. [facility] will be coordinating placement at inpatient facility. Patient is currently involuntarily at [facility] and seeking inpatient admission when a bed becomes available. [facility] Frontline Lap Maker will continue seeking placement. Please contact the Deployment Technician Under Cutting Machine Operator ([phone]) and [facility] Lap Maker ([phone]) for any needed changes in the Safety Plan. Safety plan has been provided to interdepartmental care team including Clinical Coordinator, Nursing Private Tutor.
[2018-07-02] MEDS: LORazepam 1 MG TAB PO (15:47)
[2018-07-02] MEDS: Haloperidol 5 MG TAB PO (15:47)
--- NOTE | 2018-07-02 15:48 | PDOC.MHCN ---
Date of Service: 07/02/18 Time of Service: 15:49 Presenting Issue: *How did they arrive here at ER and why did they come: Daphne came to the ER with her partner. They were camping and her hallucinations became worse. She believed that she was being attacked by criminals, and her behavior became quite erratic. She was EEed due to a high level of disorganization and an inability to care for herself safely. Precipitating Factors: *Assessment of Safety SI/HI (address delusions if pertaining to the SI/HI) Risk of harm to self and others due to her hallucinations and her high level of disorganization. At this time, she would be unable to manage in the community. She continues to present with signs of psychosis. At this time, she should remain on involuntary status for her own safety. Disposition: *Behavior: directive it's not necessary for you to talk to me *Eye Contact: intense *Mood: I'm fine *Affect: restless, somewhat flat, anxious *Appetite: reported to be eating well *Sleep (trouble falling/staying asleep): sleeping well with medications Plan: Daphne continues to improve, but is still presenting with psychosis. She is able to recognize and remember people she has seen recently. She is still observed to respond to internal stimuli, but declines to discuss this. She is reluctant to speak with this clinician, which makes it harder to get an accurate assessment. At this time, she should remain on involuntary status until she can be placed in a psychiatric facility or until she clears further. This clinician spoke with Denia from care management. The decision has been made to continue her care plan without changes.
--- NOTE | 2018-07-02 16:41 | PDOC.PROG_ITS ---
Date of Service: 07/02/18 Time of Service: 15:40 Assessment/Plan - Assessment/Plan (1) Psychosis Plan: Continue depakote at current dose. Will draw depakote level prior to her HS dose and consider increasing. Increase seroquel from 50 BID to 100mg BID. Awaiting psychiatric placement. Mental health and CM following. Discussed with Dr. Solorzano who is in agreement. History of Present Illness - History of Present Illness History of Present Illness: Daphne appears comfortable and has no complaints. Is minimally participative in exam, however denies any concerns. Mental health and CM following. According to nursing patient is still having frequent outbursts and is verbally abusive to staff. Review of Systems - Review of Systems Constitutional: Other (pt is not cooperative with specific questioning) - Medications/Allergies Allergies/Adverse Reactions: Allergies Allergy/AdvReac Type Severity Reaction Status Date / Time No Known Allergies Allergy Unverified 06/27/18 20:36 Medications: Current Medications Acetaminophen (Tylenol) 325 - 650 mg PO Q4H PRN PRN Al Hydrox/Mg Hydrox/Simethicone (Mylanta Liquid) 30 ml PO Q2H PRN PRN Albuterol Sulfate (Proventil Updraft) 2.5 mg UPD Q2H PRN PRN Albuterol/Ipratropium (Duoneb Updraft) 3 ml UPD Q6H PRN PRN Dimethicone/Zinc Oxide (Nelsy Protect Cream) 0 gm TP PRN PRN Divalproex Sodium (Depakote Er) 1,000 mg PO HS [facility] Last Admin: 07/01/18 20:49 Dose: 1,000 mg Divalproex Sodium (Depakote Er) 250 mg PO HS [facility] Last Admin: 07/01/18 20:50 Dose: 250 mg Docusate Sodium (Colace) 100 mg PO TID PRN PRN Haloperidol (Haldol) 5 mg PO TID PRN PRN Last Admin: 07/02/18 15:47 Dose: 5 mg Haloperidol Lactate (Haldol Injection) 5 mg IM Q4H PRN PRN Lorazepam (Ativan) 1 mg PO TID PRN PRN Last Admin: 07/02/18 15:47 Dose: 1 mg Lorazepam (Ativan Injection) 1 mg IM Q3H PRN PRN Magnesium Hydroxide (Milk Of Magnesia) 30 ml PO DAILY PRN PRN Nicotine (Nicotrol) 10 mg IH Q2H PRN PRN Nicotine (Nicoderm Cq) 14 mg TD DAILY PRN PRN Polyethylene Glycol (Miralax) 17 gm PO DAILY PRN PRN PRN Reason: Constipation Quetiapine Fumarate (Seroquel) 100 mg PO BID [facility] Objective - Exam Vitals and I&O: Vital Signs Temp 36.8 C 07/02/18 07:35 Pulse 80 07/02/18 07:35 Resp 18 07/02/18 07:35 BP 108/64 07/02/18 07:35 Pulse Ox 99 07/02/18 07:35 Intake & Output 07/01/18 07/02/18 07/02/18 23:59 11:59 23:59 Intake Total 2430 1200 1100 Balance 2430 1200 1100 Intake: Oral 2430 1200 1100 Other: Urine Color Yellow Yellow Urine Appearance Clear Clear Urine Odor Normal Normal Comment void x 1. pt noted to void, not observed by RN Voiding Methods Toilet Toilet Toilet General: Other (Refuses exam. Appears comfortable and in NAD.) - Results Results: Laboratory Results WBC 10.19 k/cumm (4.4-10.8) 06/28/18 06:40 RBC 5.15 m/cumm (4.00-5.20) 06/28/18 06:40 Hgb 16.6 g/dL (12.0-15.5) H 06/28/18 06:40 Hct 46.9 % (36.0-46.0) H 06/28/18 06:40 MCV 91.1 fL (80-95) 06/28/18 06:40 MCH 32.2 pg (27.0-33.0) 06/28/18 06:40 MCHC 35.4 g/dL (32.0-36.0) 06/28/18 06:40 RDW 12.9 % (11.7-14.6) 06/28/18 06:40 Plt Count 202 x1000/uL (130-400) 06/28/18 06:40 MPV 12.6 fL (8.0-11.0) H 06/28/18 06:40 Immature Gran % 0.3 06/27/18 03:20 Neutrophils % 78.0 06/27/18 03:20 Lymphocytes % 13.5 06/27/18 03:20 Monocytes % 7.7 06/27/18 03:20 Eosinophils % 0.3 06/27/18 03:20 Basophils % 0.2 06/27/18 03:20 Absolute Neutrophils 9.65 k/cumm (1.2-6.7) H 06/27/18 03:20 Absolute Lymphocytes 1.67 k/cumm (1.2-3.4) 06/27/18 03:20 Absolute Monocytes 0.95 k/cumm (0.11-0.7) H 06/27/18 03:20 Absolute Eosinophils 0.04 k/cumm (0.0-0.7) 06/27/18 03:20 Absolute Basophils 0.02 k/cumm (0.0-0.2) 06/27/18 03:20 Sodium 138 mmol/L (136-145) 06/27/18 03:20 Potassium 4.1 mmol/L (3.5-5.1) 06/27/18 03:20 Chloride 101 mmol/L (98-107) 06/27/18 03:20 Carbon Dioxide 26.4 mmol/L (21.0-32.0) 06/27/18 03:20 Anion Gap 10.6 mmol/L (3-11) 06/27/18 03:20 BUN 12 mg/dL (7-18) 06/27/18 03:20 Creatinine 0.96 mg/dL (0.55-1.02) 06/27/18 03:20 Estimated GFR/1.73 m2 >= 60.00 (mL/min/1.73m2) 06/27/18 03:20 Glucose 110 mg/dL (70-100) H 06/27/18 03:20 Calcium 8.9 mg/dL (8.5-10.1) 06/27/18 03:20 Total Bilirubin 0.6 mg/dL (0.2-1.0) 06/27/18 03:20 AST 26 U/L (15-37) 06/27/18 03:20 ALT 38 U/L (12-78) 06/27/18 03:20 Alkaline Phosphatase 59 U/L (46-116) 06/27/18 03:20 Total Protein 7.4 g/dL (6.4-8.2) 06/27/18 03:20 Albumin 3.7 g/dL (3.4-5.0) 06/27/18 03:20 TSH 0.87 uIU/mL (0.358-3.74) 06/27/18 03:20 Serum HCG, Qual Negative 06/27/18 03:20 Salicylates 8.8 mg/dL (2.8-20.0) 06/27/18 06:25 Acetaminophen < 2 ug/mL (10-30) L 06/27/18 03:20 Ethyl Alcohol < 3.0 mg/dL (<3) 06/27/18 03:20
--- NOTE | 2018-07-03 07:44 | PDOC.CMPRO ---
Date of Service: 07/03/18 Time of Service: 07:44 Care Management Progress Note SAFETY PLAN: 07/03/2018 A.T. INVOLUNTARY FOR INPATIENT PSYCHIATRIC STABILIZATION Daphne is reportedly not taking her prescribed medications this morning and is refusing lab draws. She did agree to taking haldol and ativan last evening. She has been standing at her doorway talking to the cadre for much of this morning. Referrals and phone calls have been made by CM and MH. No changes to safety plan at this time, however Fabiola RN believes that Daphne would benefit from a shower. CM will discuss changes to safety plan in huddle and make alterations accordingly. 1. May remain in her own clothing. 2. Pt to remain in the room at this time under direct Supervision at all times by ELVIN, DIRECTOR OF INTERCOLLEGIATE ATHLETICS child support agent. 3. May have paper cups, plates, finger foods as well as a metal spoon with which to eat meals. [facility] staff will be responsible for accounting of utensils after meals. 4. Comfort bath system in room with supervision. 5. No personal belongings in the room 6. May have television and dry erase markers. 7. No visitors at this time. 8. No phone at this time. 9.Follow [facility] Management of the Admitted Behavioral Health Patient policy printed and attached to the safety plan in physical chart. Last updates reported no bed availability. [facility] will be coordinating placement at inpatient facility. Patient is currently involuntarily at [facility] and seeking inpatient admission when a bed becomes available. [facility] Frontline Computerized Mill Recorder will continue seeking placement. Please contact the Sample Tester News Producer ([phone]) and [facility] Computerized Mill Recorder ([phone]) for any needed changes in the Safety Plan. Safety plan has been provided to interdepartmental care team including Clinical Coordinator, Nursing Worldwide Chief Creative Officer. - MH Services (Omit if N/A) Current MH Services: Psychiatric Inp
--- NOTE | 2018-07-03 07:47 | NUR.NOTE ---
Nursing Note: 0745: pt's presentation is different today in comparison to 07/02. on 07/02 pt whispered all day when communicating with staff. today, pt is using a normal voice tone and does accelerate in volume when becoming agitated. pt noted to be sitting in recliner with head in her hands this morning. pt appears very disheveled this morning. wearing knit cap on head. clothes are dirty but declines other options for garments. pt states who are you?, I'm drinking hot coffee today, not cold coffee, but you can put ice outside in a container that I can use for my coffee. pt had made statement on 07/02 sarkis ruiz is bad for your stomach, iced coffee is not but hot coffee is. pt has written down names of medications on white board and directs RN to look at the board this am; pt states while reading board i'm not taking any of those four medicines, no ativan, no haldol, no depakote and no seroquel today, i'm not taking it. when RN questions pt about not taking medications and her reasoning, she states i'm not taking it, we are not going to talk about it again today, ok?. pt denies any pain stating i'm okay. pt does ask the name of the PCSO at the door who is a RN. pt repeats RN's name over and over stating how she and her family know that name but they know it by another name, constantly changing the way the RN's name is pronounced. pt does not appear to be having any hallucinations at this time in comparison to 07/02 when hallucinations were very obvious to this scribe. continue to monitor.
--- NOTE | 2018-07-03 09:43 | NUR.NOTE ---
Nursing Note: 0942: RN asks pt if she would allow a lab draw this morning; pt states no, it's illegal in [place] state. RN reports to pt that she has the right to refuse but pt had to be asked if she would allow for draw. pt states don't ask me again!
--- NOTE | 2018-07-03 09:47 | NUR.NOTE ---
Nursing Note: 0945: Faisal Souza, pt's significant other, called from [place] to check in on the pt. Faiasl was given a full update. Faisal states that he is back in [place] at work and to please call him for updated information for pt is it is necessary. Faisal was please to hear that pt has slept stating that sounds like enough sleep to reset her. Faisal will check back in on pt's progress at his convenience. Faisal seems to be very supportive of pt and is very appreciative of [facility]'s efforts to care for pt.
--- NOTE | 2018-07-03 12:26 | PDOC.PROG ---
Date of Service: 07/03/18 Assessment/Plan - Assessment/Plan (1) Psychosis Assessment: Patient has been refusing to take medications and refusing lab draw. History of Present Illness - History of Present Illness Chief Complaint: Denies complaints History of Present Illness: A 42-year-old female patient who was admitted through the emergency department under an EE after being brought to the emergency department by [facility] police for psychosis. Patient was medically cleared has been medically stable and has been admitted to the medical surgical unit while awaiting psychiatric admission. This morning patient has declined to take her medications. She has been declining to have her lab work drawn she continues to have constant visual observation. Review of Systems - Review of Systems Other: Unable to obtain due to patient's mental status denies complaints - Medications/Allergies Allergies/Adverse Reactions: Allergies Allergy/AdvReac Type Severity Reaction Status Date / Time No Known Allergies Allergy Unverified 06/27/18 20:36 Medications: Current Medications Acetaminophen (Tylenol) 325 - 650 mg PO Q4H PRN PRN Al Hydrox/Mg Hydrox/Simethicone (Mylanta Liquid) 30 ml PO Q2H PRN PRN Albuterol Sulfate (Proventil Updraft) 2.5 mg UPD Q2H PRN PRN Albuterol/Ipratropium (Duoneb Updraft) 3 ml UPD Q6H PRN PRN Dimethicone/Zinc Oxide (Nelsy Protect Cream) 0 gm TP PRN PRN Divalproex Sodium (Depakote Er) 1,000 mg PO HS REPLACED BY [facility] Last Admin: 07/02/18 22:58 Dose: Not Given Divalproex Sodium (Depakote Er) 250 mg PO [facility] Last Admin: 07/02/18 22:58 Dose: Not Given Docusate Sodium (Colace) 100 mg PO TID PRN PRN Haloperidol (Haldol) 5 mg PO TID PRN PRN Last Admin: 07/02/18 15:47 Dose: 5 mg Haloperidol Lactate (Haldol Injection) 5 mg IM Q4H PRN PRN Lorazepam (Ativan) 1 mg PO TID PRN PRN Last Admin: 07/02/18 15:47 Dose: 1 mg Lorazepam (Ativan Injection) 1 mg IM Q3H PRN PRN Magnesium Hydroxide (Milk Of Magnesia) 30 ml PO DAILY PRN PRN Nicotine (Nicotrol) 10 mg IH Q2H PRN PRN Nicotine (Nicoderm Cq) 14 mg TD DAILY PRN PRN Polyethylene Glycol (Miralax) 17 gm PO DAILY PRN PRN PRN Reason: Constipation Quetiapine Fumarate (Seroquel) 100 mg PO BID [facility] Last Admin: 07/03/18 09:50 Dose: Not Given Objective - Exam Vitals and I&O: Vital Signs Temp 36.8 C 07/02/18 07:35 Pulse 80 07/02/18 07:35 Resp 18 07/02/18 07:35 BP 108/64 07/02/18 07:35 Pulse Ox 99 07/02/18 07:35 Intake & Output 07/02/18 07/03/18 07/03/18 23:59 11:59 23:59 Intake Total 1100 400 Balance 1100 400 Intake: Oral 1100 400 Other: Comment pt noted to void, not observed by RN Voiding Methods Toilet General: Alert (Oriented to person), Cooperative, No acute distress HEENT: Atraumatic, Mucous membr. moist/pink Lungs: Other (Respirations even and unlabored) Psych/Mental Status: Mental status NL (Psychotic) - Results Results: Laboratory Results WBC 10.19 k/cumm (4.4-10.8) 06/28/18 06:40 RBC 5.15 m/cumm (4.00-5.20) 06/28/18 06:40 Hgb 16.6 g/dL (12.0-15.5) H 06/28/18 06:40 Hct 46.9 % (36.0-46.0) H 06/28/18 06:40 MCV 91.1 fL (80-95) 06/28/18 06:40 MCH 32.2 pg (27.0-33.0) 06/28/18 06:40 MCHC 35.4 g/dL (32.0-36.0) 06/28/18 06:40 RDW 12.9 % (11.7-14.6) 06/28/18 06:40 Plt Count 202 x1000/uL (130-400) 06/28/18 06:40 MPV 12.6 fL (8.0-11.0) H 06/28/18 06:40 Immature Gran % 0.3 06/27/18 03:20 Neutrophils % 78.0 06/27/18 03:20 Lymphocytes % 13.5 06/27/18 03:20 Monocytes % 7.7 06/27/18 03:20 Eosinophils % 0.3 06/27/18 03:20 Basophils % 0.2 06/27/18 03:20 Absolute Neutrophils 9.65 k/cumm (1.2-6.7) H 06/27/18 03:20 Absolute Lymphocytes 1.67 k/cumm (1.2-3.4) 06/27/18 03:20 Absolute Monocytes 0.95 k/cumm (0.11-0.7) H 06/27/18 03:20 Absolute Eosinophils 0.04 k/cumm (0.0-0.7) 06/27/18 03:20 Absolute Basophils 0.02 k/cumm (0.0-0.2) 06/27/18 03:20 Sodium 138 mmol/L (136-145) 06/27/18 03:20 Potassium 4.1 mmol/L (3.5-5.1) 06/27/18 03:20 Chloride 101 mmol/L (98-107) 06/27/18 03:20 Carbon Dioxide 26.4 mmol/L (21.0-32.0) 06/27/18 03:20 Anion Gap 10.6 mmol/L (3-11) 06/27/18 03:20 BUN 12 mg/dL (7-18) 06/27/18 03:20 Creatinine 0.96 mg/dL (0.55-1.02) 06/27/18 03:20 Estimated GFR/1.73 m2 >= 60.00 (mL/min/1.73m2) 06/27/18 03:20 Glucose 110 mg/dL (70-100) H 06/27/18 03:20 Calcium 8.9 mg/dL (8.5-10.1) 06/27/18 03:20 Total Bilirubin 0.6 mg/dL (0.2-1.0) 06/27/18 03:20 AST 26 U/L (15-37) 06/27/18 03:20 ALT 38 U/L (12-78) 06/27/18 03:20 Alkaline Phosphatase 59 U/L (46-116) 08/21/18 03:20 Total Protein 7.4 g/dL (6.4-8.2) 06/27/18 03:20 Albumin 3.7 g/dL (3.4-5.0) 06/27/18 03:20 TSH 0.87 uIU/mL (0.358-3.74) 06/27/18 03:20 Serum HCG, Qual Negative 06/27/18 03:20 Salicylates 8.8 mg/dL (2.8-20.0) 06/27/18 06:25 Acetaminophen < 2 ug/mL (10-30) L 06/27/18 03:20 Ethyl Alcohol < 3.0 mg/dL (<3) 06/27/18 03:20
--- NOTE | 2018-07-03 12:29 | PDOC.PROG_ITS ---
Date of Service: 07/03/18 Assessment/Plan - Assessment/Plan (1) Psychosis Assessment: Patient has been refusing to take medications and refusing lab draw. History of Present Illness - History of Present Illness Chief Complaint: Denies complaints History of Present Illness: A 42-year-old female patient who was admitted through the emergency department under an EE after being brought to the emergency department by [facility] police for psychosis. Patient was medically cleared has been medically stable and has been admitted to the medical surgical unit while awaiting psychiatric admission. This morning patient has declined to take her medications. She has been declining to have her lab work drawn she continues to have constant visual observation. Review of Systems - Review of Systems Other: Unable to obtain due to patient's mental status denies complaints - Medications/Allergies Allergies/Adverse Reactions: Allergies Allergy/AdvReac Type Severity Reaction Status Date / Time No Known Allergies Allergy Unverified 06/27/18 20:36 Medications: Current Medications Acetaminophen (Tylenol) 325 - 650 mg PO Q4H PRN PRN Al Hydrox/Mg Hydrox/Simethicone (Mylanta Liquid) 30 ml PO Q2H PRN PRN Albuterol Sulfate (Proventil Updraft) 2.5 mg UPD Q2H PRN PRN Albuterol/Ipratropium (Duoneb Updraft) 3 ml UPD Q6H PRN PRN Dimethicone/Zinc Oxide (Nelsy Protect Cream) 0 gm TP PRN PRN Divalproex Sodium (Depakote Er) 1,000 mg PO HS [facility] Last Admin: 07/02/18 22:58 Dose: Not Given Divalproex Sodium (Depakote Er) 250 mg PO [facility] Last Admin: 07/02/18 22:58 Dose: Not Given Docusate Sodium (Colace) 100 mg PO TID PRN PRN Haloperidol (Haldol) 5 mg PO TID PRN PRN Last Admin: 07/02/18 15:47 Dose: 5 mg Haloperidol Lactate (Haldol Injection) 5 mg IM Q4H PRN PRN Lorazepam (Ativan) 1 mg PO TID PRN PRN Last Admin: 07/02/18 15:47 Dose: 1 mg Lorazepam (Ativan Injection) 1 mg IM Q3H PRN PRN Magnesium Hydroxide (Milk Of Magnesia) 30 ml PO DAILY PRN PRN Nicotine (Nicotrol) 10 mg IH Q2H PRN PRN Nicotine (Nicoderm Cq) 14 mg TD DAILY PRN PRN Polyethylene Glycol (Miralax) 17 gm PO DAILY PRN PRN PRN Reason: Constipation Quetiapine Fumarate (Seroquel) 100 mg PO BID [facility] Last Admin: 07/03/18 09:50 Dose: Not Given Objective - Exam Vitals and I&O: Vital Signs Temp 36.8 C 07/02/18 07:35 Pulse 80 07/02/18 07:35 Resp 18 07/02/18 07:35 BP 108/64 07/02/18 07:35 Pulse Ox 99 07/02/18 07:35 Intake & Output 07/02/18 07/03/18 07/03/18 23:59 11:59 23:59 Intake Total 1100 400 Balance 1100 400 Intake: Oral 1100 400 Other: Comment pt noted to void, not observed by RN Voiding Methods Toilet General: Alert (Oriented to person), Cooperative, No acute distress HEENT: Atraumatic, Mucous membr. moist/pink Lungs: Other (Respirations even and unlabored) Psych/Mental Status: Mental status NL (Psychotic) - Results Results: Laboratory Results WBC 10.19 k/cumm (4.4-10.8) 06/28/18 06:40 RBC 5.15 m/cumm (4.00-5.20) 06/28/18 06:40 Hgb 16.6 g/dL (12.0-15.5) H 06/28/18 06:40 Hct 46.9 % (36.0-46.0) H 06/28/18 06:40 MCV 91.1 fL (80-95) 06/28/18 06:40 MCH 32.2 pg (27.0-33.0) 06/28/18 06:40 MCHC 35.4 g/dL (32.0-36.0) 06/28/18 06:40 RDW 12.9 % (11.7-14.6) 06/28/18 06:40 Plt Count 202 x1000/uL (130-400) 06/28/18 06:40 MPV 12.6 fL (8.0-11.0) H 06/28/18 06:40 Immature Gran % 0.3 06/27/18 03:20 Neutrophils % 78.0 06/27/18 03:20 Lymphocytes % 13.5 06/27/18 03:20 Monocytes % 7.7 06/27/18 03:20 Eosinophils % 0.3 06/27/18 03:20 Basophils % 0.2 06/27/18 03:20 Absolute Neutrophils 9.65 k/cumm (1.2-6.7) H 06/27/18 03:20 Absolute Lymphocytes 1.67 k/cumm (1.2-3.4) 06/27/18 03:20 Absolute Monocytes 0.95 k/cumm (0.11-0.7) H 06/27/18 03:20 Absolute Eosinophils 0.04 k/cumm (0.0-0.7) 06/27/18 03:20 Absolute Basophils 0.02 k/cumm (0.0-0.2) 06/27/18 03:20 Sodium 138 mmol/L (136-145) 06/27/18 03:20 Potassium 4.1 mmol/L (3.5-5.1) 06/27/18 03:20 Chloride 101 mmol/L (98-107) 06/27/18 03:20 Carbon Dioxide 26.4 mmol/L (21.0-32.0) 06/27/18 03:20 Anion Gap 10.6 mmol/L (3-11) 06/27/18 03:20 BUN 12 mg/dL (7-18) 06/27/18 03:20 Creatinine 0.96 mg/dL (0.55-1.02) 06/27/18 03:20 Estimated GFR/1.73 m2 >= 60.00 (mL/min/1.73m2) 06/27/18 03:20 Glucose 110 mg/dL (70-100) H 06/27/18 03:20 Calcium 8.9 mg/dL (8.5-10.1) 06/27/18 03:20 Total Bilirubin 0.6 mg/dL (0.2-1.0) 06/27/18 03:20 AST 26 U/L (15-37) 06/27/18 03:20 ALT 38 U/L (12-78) 06/27/18 03:20 Alkaline Phosphatase 59 U/L (46-116) 08/21/18 03:20 Total Protein 7.4 g/dL (6.4-8.2) 06/27/18 03:20 Albumin 3.7 g/dL (3.4-5.0) 06/27/18 03:20 TSH 0.87 uIU/mL (0.358-3.74) 06/27/18 03:20 Serum HCG, Qual Negative 06/27/18 03:20 Salicylates 8.8 mg/dL (2.8-20.0) 06/27/18 06:25 Acetaminophen < 2 ug/mL (10-30) L 06/27/18 03:20 Ethyl Alcohol < 3.0 mg/dL (<3) 06/27/18 03:20
--- NOTE | 2018-07-03 18:33 | NUR.NOTE ---
Nursing Note: At aprox 1820, patient was seen at the doorway an asking other people to bring her out for a cigarette. Patient very abdiment about leaving the hospital for a cigarette, patient states she was promised one puff. When RN went to explain to patient that no smoking was allowed and offered nicotine replacements, patient became verbally abusive with staff; swearing frequently, pacing and sitting in chair. Patient refusing staff to enter her room. Very upset with the doctor and asking about people who deal with real people. Currently patient is sitting in recliner eating food. Clinical coordinator, Chanda Kidd, made aware of situation.
[2018-07-03] MEDS: Nicotine 14 MG/24 HR PATCH TD (19:44)
[2018-07-03] MEDS: Divalproex Sodium 250 MG TAB.ER.24H PO (20:28)
[2018-07-03] MEDS: QUEtiapine 100 MG TAB PO (20:28)
[2018-07-03] MEDS: Divalproex Sodium 250 MG TAB.ER.24H 1000 MG PO (20:28)
[2018-07-03 21:15] LABS: VALPROIC ACID 18.3 ug/mL (50-100)
[2018-07-03] MEDS: LORazepam 1 MG TAB PO (22:07)
[2018-07-03] MEDS: Haloperidol 5 MG TAB PO (22:07)
--- NOTE | 2018-07-03 22:38 | NUR.NOTE ---
Nursing Note: After receiving nicotine replacement, patient seemed to be in a better mood. Calm, cooperative and pleasant with staff. Patient agreeable to pm medications, able to verbalize need for PRN medications. Patient agreeable to labs, pm care and to change into paper scrubs to have her clothes washed.
[2018-07-04] MEDS: QUEtiapine 100 MG TAB PO ×2 (07:37→19:08)
--- NOTE | 2018-07-04 11:05 | CMPROGNOTE_ITS ---
Date of Service: 07/04/18 Time of Service: 11:03 Care Management Progress Note SAFETY PLAN: 07/04/2018 A.T. INVOLUNTARY FOR INPATIENT PSYCHIATRIC STABILIZATION Daphne has reportedly been taking her prescribed medications, has allowed lab draws this morning and has slept on and off. She is eating well and drinking iced coffee and by all accounts is doing better this morning than in past days. Daphne has requested a shower and this will be added to her safety plan 07/04/2018 at 11:30am. Huddle participants: SILVANA Velazquez, Delmi, Nursing Naval Aircrewman, PRABHAKAR Capone, SILVANA Stockton CM and IVELISSE Garcia CM. 1. May remain in her own clothing. 2. Pt to remain in the room at this time under direct Supervision at all times by ELVIN, RUPA senior director finance. 3. May have paper cups, plates, finger foods as well as a metal spoon with which to eat meals. [facility] staff will be responsible for accounting of utensils after meals. 4. May shower with supervision. 5. No personal belongings in the room 6. May have television and dry erase markers. 7. No visitors at this time. 8. No phone at this time. 9.Follow [facility] Management of the Admitted Behavioral Health Patient policy printed and attached to the safety plan in physical chart. [facility] will be coordinating placement at inpatient facility. Patient is currently involuntarily at [facility] and seeking inpatient admission when a bed becomes available. [facility] Frontline Clinical Safety Specialist will continue seeking placement. Please contact the Cruise Director Special Educator ([phone]) and [facility] Clinical Safety Specialist ([phone]) for any needed changes in the Safety Plan. Safety plan has been provided to interdepartmental care team including Clinical Coordinator, Nursing Naval Aircrewman. - MH Services (Omit if N/A) Current MH Services: Psychiatric Inp
--- NOTE | 2018-07-04 11:17 | PDOC.PROG_ITS ---
Date of Service: 07/04/18 Assessment/Plan - Assessment/Plan (1) Psychosis Assessment: Now taking medications, continue as currently prescribed (2) Discharge planning issues Assessment: Patient continues to be maintained under constant visual observation. She is awaiting an inpatient psychiatric bed. Case management and mental health following History of Present Illness - History of Present Illness History of Present Illness: A 42-year-old female patient who was admitted through the emergency department under an involuntary hold after being brought to the emergency department by state police for psychosis. Patient was medically cleared has been medically stable and has been admitted to the medical surgical unit while awaiting inpatient psychiatric admission. she had been refusing to take her medications and refusing lab draw but last night was agreeable to both. She continues to have a sitter with constant visual observation. She has been cooperative, eating and drinking bowels and bladder functioning. There are no new active issues Review of Systems - Review of Systems Constitutional: denies: Fever Respiratory: denies: Cough, Shortness of Breath Cardiovascular: denies: Chest Pain Gastrointestinal: denies: Nausea, Vomiting, Abdominal Pain Genitourinary: denies: Frequency Neurological: denies: Incoordination, Change in Speech - Medications/Allergies Allergies/Adverse Reactions: Allergies Allergy/AdvReac Type Severity Reaction Status Date / Time No Known Allergies Allergy Unverified 06/27/18 20:36 Medications: Current Medications Acetaminophen (Tylenol) 325 - 650 mg PO Q4H PRN PRN Al Hydrox/Mg Hydrox/Simethicone (Mylanta Liquid) 30 ml PO Q2H PRN PRN Albuterol Sulfate (Proventil Updraft) 2.5 mg UPD Q2H PRN PRN Albuterol/Ipratropium (Duoneb Updraft) 3 ml UPD Q6H PRN PRN Dimethicone/Zinc Oxide (Nelsy Protect Cream) 0 gm TP PRN PRN Divalproex Sodium (Depakote Er) 1,000 mg PO HS [facility] Last Admin: 07/03/18 20:28 Dose: 1,000 mg Divalproex Sodium (Depakote Er) 250 mg PO HS [facility] Last Admin: 07/03/18 20:28 Dose: 250 mg Docusate Sodium (Colace) 100 mg PO TID PRN PRN Haloperidol (Haldol) 5 mg PO TID PRN PRN Last Admin: 07/03/18 22:07 Dose: 5 mg Haloperidol Lactate (Haldol Injection) 5 mg IM Q4H PRN PRN Lorazepam (Ativan) 1 mg PO TID PRN PRN Last Admin: 07/03/18 22:07 Dose: 1 mg Lorazepam (Ativan Injection) 1 mg IM Q3H PRN PRN Magnesium Hydroxide (Milk Of Magnesia) 30 ml PO DAILY PRN PRN Nicotine (Nicotrol) 10 mg IH Q2H PRN PRN Last Admin: 07/04/18 07:37 Dose: 10 mg Nicotine (Nicoderm Cq) 14 mg TD DAILY PRN PRN Last Admin: 07/03/18 19:44 Dose: 14 mg Polyethylene Glycol (Miralax) 17 gm PO DAILY PRN PRN PRN Reason: Constipation Quetiapine Fumarate (Seroquel) 100 mg PO BID [facility] Last Admin: 07/04/18 07:37 Dose: 100 mg Objective - Exam Vitals and I&O: Vital Signs Temp 36.8 C 07/02/18 07:35 Pulse 80 07/02/18 07:35 Resp 18 07/02/18 07:35 BP 108/64 07/02/18 07:35 Pulse Ox 99 07/02/18 07:35 Intake & Output 07/03/18 07/03/18 07/04/18 11:59 23:59 11:59 Intake Total 400 250 Balance 400 250 Intake: Oral 400 250 Other: Comment The patient voids normal frequent due to the amount of liquid intake she is independant toileting so I cannot comment on the above. Just frequency independantly Voiding Methods Toilet Toilet General: Alert, Cooperative, No acute distress HEENT: Atraumatic Lungs: Clear to auscultation, Normal air movement Cardiovascular: Regular rate Abdomen: Normal bowel sounds, Soft Skin: denies: Rashes Neurological: Normal gait, Strength at 5/5 X4 ext. denies: Normal speech ( Pressured disorganized) Psych/Mental Status: denies: Mental status NL (Psychotic), Mood NL - Results Results: Laboratory Results WBC 10.19 k/cumm (4.4-10.8) 06/28/18 06:40 RBC 5.15 m/cumm (4.00-5.20) 06/28/18 06:40 Hgb 16.6 g/dL (12.0-15.5) H 06/28/18 06:40 Hct 46.9 % (36.0-46.0) H 06/28/18 06:40 MCV 91.1 fL (80-95) 06/28/18 06:40 MCH 32.2 pg (27.0-33.0) 06/28/18 06:40 MCHC 35.4 g/dL (32.0-36.0) 06/28/18 06:40 RDW 12.9 % (11.7-14.6) 06/28/18 06:40 Plt Count 202 x1000/uL (130-400) 06/28/18 06:40 MPV 12.6 fL (8.0-11.0) H 06/28/18 06:40 Immature Gran % 0.3 06/27/18 03:20 Neutrophils % 78.0 06/27/18 03:20 Lymphocytes % 13.5 06/27/18 03:20 Monocytes % 7.7 06/27/18 03:20 Eosinophils % 0.3 06/27/18 03:20 Basophils % 0.2 06/27/18 03:20 Absolute Neutrophils 9.65 k/cumm (1.2-6.7) H 06/27/18 03:20 Absolute Lymphocytes 1.67 k/cumm (1.2-3.4) 06/27/18 03:20 Absolute Monocytes 0.95 k/cumm (0.11-0.7) H 06/27/18 03:20 Absolute Eosinophils 0.04 k/cumm (0.0-0.7) 06/27/18 03:20 Absolute Basophils 0.02 k/cumm (0.0-0.2) 06/27/18 03:20 Sodium 138 mmol/L (136-145) 06/27/18 03:20 Potassium 4.1 mmol/L (3.5-5.1) 06/27/18 03:20 Chloride 101 mmol/L (98-107) 06/27/18 03:20 Carbon Dioxide 26.4 mmol/L (21.0-32.0) 06/27/18 03:20 Anion Gap 10.6 mmol/L (3-11) 06/27/18 03:20 BUN 12 mg/dL (7-18) 06/27/18 03:20 Creatinine 0.96 mg/dL (0.55-1.02) 06/27/18 03:20 Estimated GFR/1.73 m2 >= 60.00 (mL/min/1.73m2) 06/27/18 03:20 Glucose 110 mg/dL (70-100) H 06/27/18 03:20 Calcium 8.9 mg/dL (8.5-10.1) 06/27/18 03:20 Total Bilirubin 0.6 mg/dL (0.2-1.0) 06/27/18 03:20 AST 26 U/L (15-37) 06/27/18 03:20 ALT 38 U/L (12-78) 06/27/18 03:20 Alkaline Phosphatase 59 U/L (46-116) 06/27/18 03:20 Total Protein 7.4 g/dL (6.4-8.2) 06/27/18 03:20 Albumin 3.7 g/dL (3.4-5.0) 06/27/18 03:20 TSH 0.87 uIU/mL (0.358-3.74) 06/27/18 03:20 Serum HCG, Qual Negative 06/27/18 03:20 Salicylates 8.8 mg/dL (2.8-20.0) 06/27/18 06:25 Urine Opiates Screen Cancelled 07/04/18 07:38 Urine Methadone Screen Cancelled 07/04/18 07:38 Acetaminophen < 2 ug/mL (10-30) L 06/27/18 03:20 Ur Barbiturates Screen Cancelled 07/04/18 07:38 Total Valproic Acid 18.3 ug/mL (50-100) L 07/03/18 20:54 Ur Tricyclics Screen Cancelled 07/04/18 07:38 Ur Amphetamines Screen Cancelled 07/04/18 07:38 U Benzodiazepines Scrn Cancelled 07/04/18 07:38 Urine Cocaine Screen Cancelled 07/04/18 07:38 Ur THC Screen Cancelled 07/04/18 07:38 Ethyl Alcohol < 3.0 mg/dL (<3) 06/27/18 03:20
--- NOTE | 2018-07-04 11:28 | ERMH_ITS ---
Presenting issue: *How did they arrive here at ER and why did they come: Patient initially arrived to [facility] ED via police for mental health disturbances. Precipitating Factors: *Assessment of Safety SI / HI- (Address delusions if pertaining to the SI/ HI) Patient is still rambling making it difficult to carry on a conversation but she is very cooperative in allowing this law writer into her room to follow-up. She is very concerned about being able to take a shower as she currently has comfort bath measures. Patient is able to recall names of other [facility] staff members she previously met. She wanted the phone number to the [facility] agency and wrote it down on the whiteboard in her room. Disposition: *Behavior: Patient was standing writing on the white board in her room *Eye Contact: Intermittent *Mood: Calm *Affect: Flat *Appetite: Patient primarily eats toast and bananas and drinking primarily coffee according to hospital staff *Sleep (trouble falling/staying asleep): According to hospital staff her sleep is sporadic Plan: (please elaborate and include that physician is consulted with plan and/ or placement): [] Provisional Diagnosis:(only if required by physician): [] AXIS 5 Case Handover: Done with ED nurse (name): [] Date & Time [] Huddle: done with ED staff (for boarding clients): [] Yes [] No Date /Time [] Referral for Case management: Has phone call for introduction been made [] Yes [] No Referral in EMR: Done and sent? [] Yes [] NO Clinicians Name and title and Signature: [Estelita Moore - [facility] Emergency Clinician] Make sure that you are photocopying and submitting this to [facility] records dept.to be scanned into chart
[2018-07-04] MEDS: Nicotine 14 MG/24 HR PATCH TD (19:08)
[2018-07-04] MEDS: LORazepam 1 MG TAB PO ×2 (19:09→23:39)
[2018-07-04] MEDS: Divalproex Sodium 250 MG TAB.ER.24H PO (20:54)
[2018-07-04] MEDS: Divalproex Sodium 250 MG TAB.ER.24H 1000 MG PO (20:54)
[2018-07-04] MEDS: Haloperidol 5 MG TAB PO (20:54)
[2018-07-05] MEDS: QUEtiapine 100 MG TAB PO ×2 (10:32→20:05)
--- NOTE | 2018-07-05 12:15 | PROG.BLANK ---
Date of Service: 07/05/18 Progress Note Interval history: This is a 43-year-old female patient who was admitted to the medical surgical unit while awaiting an inpatient psychiatric bed. She is currently maintained under an EE hold for acute psychosis. She did refuse medications on Tuesday morning but has been agreeable to taking her medications since with no improvement in her psychiatric status. She has been cooperative and pleasant but does remain disorganized and psychotic. Medically she has been stable. She is eating and drinking bowels and bladder functioning well she has no physical complaints. We were originally notified that there was a bed available today but there discharge was canceled so her discharge here has been placed on hold. Physical exam: Skin is pink warm dry well perfused she is in no acute distress. Respirations are even and unlabored. She declines vital signs. Assessment and plan: Acute psychosis. Continue taking medications as prescribed. Case management and mental health continue to follow. Patient will be maintained on constant visual observation while awaiting an inpatient psychiatric bed.
--- NOTE | 2018-07-05 12:19 | CMPROGNOTE_ITS ---
Date of Service: 07/05/18 Time of Service: 12:18 Care Management Progress Note SAFETY PLAN: 07/05/2018 A.T. INVOLUNTARY FOR INPATIENT PSYCHIATRIC STABILIZATION Daphne has reportedly been taking her prescribed medications, has allowed lab draws this morning and has slept on and off. She is eating well and drinking iced coffee and by all accounts is doing better this morning than in past days. It is Daphne's birthday today and she is requesting a phone call with her daughter. Updated safety plan will include supervised phone call due to patient' s increasingly appropriate behaviors. 1. May remain in her own clothing. 2. Pt to remain in the room at this time under direct supervision at all times by ADAPTIVE PHYSICAL EDUCATION SPECIALIST, SWITCH BOX INSTALLER director cloud transformation. 3. May have paper cups, plates, finger foods as well as a metal spoon with which to eat meals. [facility] staff will be responsible for accounting of utensils after meals. 4. May shower with supervision. 5. No personal belongings in the room 6. May have television and dry erase markers. 7. No visitors at this time. 8. May have supervised phone call with daughter. 9.Follow [facility] Management of the Admitted Behavioral Health Patient policy printed and attached to the safety plan in physical chart. [facility] will be coordinating placement at inpatient facility. Patient is currently involuntarily at [facility] and seeking inpatient admission when a bed becomes available. [facility] Frontline Poultry Process Worker will continue seeking placement. Please contact the Piercer Operator Knit Goods Cutter Hand ([phone]) and [facility] Poultry Process Worker ([phone]) for any needed changes in the Safety Plan. Safety plan has been provided to interdepartmental care team including Clinical Coordinator, Nursing Assistant Plant Controller. - MH Services (Omit if N/A) Current MH Services: Psychiatric Inp
--- NOTE | 2018-07-05 14:49 | ERMH_ITS ---
Presenting issue: *How did they arrive here at ER and why did they come: Patient initially arrived at the Emergency Department via police for mental health disturbances. Precipitating Factors: *Assessment of Safety SI / HI- (Address delusions if pertaining to the SI/ HI) Unable to assess for SI/HI as the patient it not responding to this group underwriter. She is awake and said this group underwriter could come in and talk with her but when asked a question she ignores it. Disposition: *Behavior: Patient is laying in the hospital bed awake but pretending to be asleep *Eye Contact: None *Mood: Calm *Affect: Flat *Appetite: Unknown *Sleep (trouble falling/staying asleep): Unknown Plan: (please elaborate and include that physician is consulted with plan and/ or placement): Patient will remain at the hospital on an involuntary status until a bed becomes available at a mental health treatment facility. Provisional Diagnosis:(only if required by physician): [] AXIS 5 Case Handover: Done with ED nurse (name): [] Date & Time [] Huddle: done with ED staff (for boarding clients): [] Yes [] No Date /Time [] Referral for Case management: Has phone call for introduction been made [] Yes [] No Referral in EMR: Done and sent? [] Yes [] NO Clinicians Name and title and Signature: [Estelita Moore - [facility] Emergency Clinician] Make sure that you are photocopying and submitting this to [facility] records dept.to be scanned into chart
[2018-07-05 16:09] VITALS: BP 121/84; PULSE 98; RESP 18; TEMP 36.2; O2SAT 98
--- NOTE | 2018-07-05 19:50 | ERMH_ITS ---
Presenting issue: *How did they arrive here at ER and why did they come: Client came to the hospital a week ago by police for concerning behavior related to mental health disturbances. Precipitating Factors: *Assessment of Safety SI / HI- (Address delusions if pertaining to the SI/ HI) Client unable to answer if she is HI/SI at this time and unable to answer any other questions directed towards her as he is inaudible and is rambling in all directions. Disposition: *Behavior: Calm, yet rambling and writing on the white board *Eye Contact: Little to no eye contact as she kept moving to stay out of eye contact *Mood: Calm *Affect: Flat *Appetite: Appropriate *Sleep (trouble falling/staying asleep): Fair Plan: (please elaborate and include that physician is consulted with plan and/ or placement): ./client will remain on an involuntary status and will be transported to a mental health treatment facility when a bed becomes available. At this time there are no beds available Provisional Diagnosis:(only if required by physician): AXIS 5 Case Handover: Done with ED nurse (name): Date & Time Huddle: done with ED staff (for boarding clients): Yes No Date/ Time Referral for Case management: Has phone call for introduction been made Yes No Referral in EMR: Done and sent? Yes NO Clinicians Name and title and Signature: Matt Farr MS, [facility], ES Make sure that you are photocopying and submitting this to [facility] records dept.to be scanned into chart
[2018-07-05] MEDS: Nicotine 14 MG/24 HR PATCH TD (20:03)
[2018-07-05] MEDS: Divalproex Sodium 250 MG TAB.ER.24H 1000 MG PO (20:06)
[2018-07-05] MEDS: Divalproex Sodium 250 MG TAB.ER.24H PO (20:06)
[2018-07-05] MEDS: Haloperidol 5 MG TAB PO (22:00)
[2018-07-05] MEDS: LORazepam 1 MG TAB PO (22:00)
[2018-07-06] MEDS: QUEtiapine 100 MG TAB PO (07:54)
--- NOTE | 2018-07-06 08:04 | NUR.NOTE ---
Nursing Note: 0800: pt taking medications this am; seroquel without incident. pt actually requesting meds this am. pt rambling about haldol, ativan and depakote this morning and wanting to make sure she has prescriptions for all the above when she is discharged. pt requesting nicotine replacement cartridge this morning. pt pleasant and talkative. pt asks RN do you know Lincoln Bobo and how he was murdered?. pt goes on to state how Lincoln was murdered and how she knows this every fall. pt talking about Faisal coming to get her and her PCP Dr. Sterling who makes me bring in my meds for med count, he will only give me meds if the count is right. pt talking about [place] and [place] this am. pt having auditory hallucinations and is responding to those in conversation. pt appears well kempt this am, clean, no body odor. drinking water. denies pain t/o. pt making good eye contact and seems to remember this RN from previous days as she calls RN by name. continue to monitor.
--- NOTE | 2018-07-06 09:20 | NUR.NOTE ---
Nursing Note: 0915: pt noted to be in doorway with no pants on; shirt covering pts genital area. pt has paper brief in hand, RN suggests pt back up in room to put brief on in private. pt agreeable and puts on brief. pt is obsessed over clothes at this time, wanting additional clothes to put on. pt appears to be having auditory hallucinations as she will be speaking to the RN, then stops conversation, looks to the right, states do I need more clothes bitch and what size clothes bitch, then focuses on RN again and asks for clothes. continue to monitor.
--- NOTE | 2018-07-06 10:08 | ERMH_ITS ---
Presenting issue: *How did they arrive here at ER and why did they come: Patient initially arrived at the Emergency Department via police for disturbances in mental health. Precipitating Factors: *Assessment of Safety SI / HI- (Address delusions if pertaining to the SI/ HI) Patient was able to answer this writers questions regarding SI/HI and she denies any ideations. Patient was talking about her daughter and how she saved her life when she was standing on the toilet seat. The patient states that there is a saw on the shelf above the toilet and her daughter could have if she wasn't there. The patient is also concerned about changing into other personal clothes. According to hospital staff the patient was requesting her meds this morning and requesting extra for when she goes home so that she does not act like this again. Disposition: *Behavior: Patient is standing in the doorway talking with this gag writer *Eye Contact: Eye contact has improved *Mood: Calm *Affect: Flat *Appetite: Good *Sleep (trouble falling/staying asleep): Unknown Plan: (please elaborate and include that physician is consulted with plan and/ or placement): Patient will remain at the hospital on an involuntary status until a bed becomes available at a mental health treatment facility. Referrals were sent to [facility] this morning and sent to [facility] yesterday. Provisional Diagnosis:(only if required by physician): [] AXIS 5 Case Handover: Done with ED nurse (name): [] Date & Time [] Huddle: done with ED staff (for boarding clients): [] Yes [] No Date /Time [] Referral for Case management: Has phone call for introduction been made [] Yes [] No Referral in EMR: Done and sent? [] Yes [] NO Clinicians Name and title and Signature: [Estelita Moore - [facility] Emergency Clinician] Make sure that you are photocopying and submitting this to [facility] records dept.to be scanned into chart
--- NOTE | 2018-07-06 10:11 | PDOC.CMPRO ---
Date of Service: 07/06/18 Time of Service: 10:11 Care Management Progress Note SAFETY PLAN: 07/06/2018 A.T. INVOLUNTARY FOR INPATIENT PSYCHIATRIC STABILIZATION Daphne has reportedly been taking her prescribed medications, has allowed lab draws this morning and has slept on and off. She is eating well and drinking iced coffee. Daphne has been standing in her doorway this morning to her room talking with [facility] staff. Early this morning Daphne's behavior escalated as the person in the room next to her was becoming loud. Daphne was yelling for them to shut up and yelling profanities. After this incident Daphne has been appropriate and cooperative. PRABHAKAR Capone, met with Daphne this morning and was able to have discussion. Huddle held, those in attendance: SILVANA Hicks, PRABHAKAR Capone, Jennifer, SILVANA CC, Jessica, RN Furnace Reliner, and this internal communications writer. Estelita discussed bed availability which is listed below. Safety plan also discussed and updated accordingly. [place]: Not able to accept [place]: States they will call back with decision [place]: No beds [facility]: Referral faxed [facility] [place]: Awaiting decision. 1. May remain in her own clothing. 2. Pt to remain in the room at this time under direct supervision at all times by ELVIN, CREDIT REPORT CHECKER rice farmworker. 3. May have paper cups, plates, finger foods as well as a metal spoon with which to eat meals. [facility] staff will be responsible for accounting of utensils after meals. 4. May shower with supervision. 5. No personal belongings in the room 6. May have television and dry erase markers. 7. No visitors at this time. 8. May have supervised phone call with daughter phone to be removed after phone call. 9.Follow [facility] Management of the Admitted Behavioral Health Patient policy printed and attached to the safety plan in physical chart. [facility] will be coordinating placement at inpatient facility. Patient is currently involuntarily at [facility] and seeking inpatient admission when a bed becomes available. [facility] Frontline Website Project Manager will continue seeking placement. Please contact the Gliding Pilot Instructor Enrichment Teacher ([phone]) and [facility] Website Project Manager ([phone]) for any needed changes in the Safety Plan. Safety plan has been provided to interdepartmental care team including Clinical Coordinator, Nursing Medical Clerical Assistant
--- NOTE | 2018-07-06 10:33 | CMPROGNOTE_ITS ---
Date of Service: 07/06/18 Time of Service: 10:11 Care Management Progress Note SAFETY PLAN: 07/06/2018 A.T. INVOLUNTARY FOR INPATIENT PSYCHIATRIC STABILIZATION Daphne has reportedly been taking her prescribed medications, has allowed lab draws this morning and has slept on and off. She is eating well and drinking iced coffee. Daphne has been standing in her doorway this morning to her room talking with [facility] staff. Early this morning Daphne's behavior escalated as the person in the room next to her was becoming loud. Daphne was yelling for them to shut up and yelling profanities. After this incident Daphne has been appropriate and cooperative. PRABHAKAR Capone, met with Daphne this morning and was able to have discussion. Huddle held, those in attendance: SILVANA Hicks, PRABHAKAR Capone, Jennifer, SILVANA CC, Jessica, RN Gas Pumping Station Operator, and this headline writer. Estelita discussed bed availability which is listed below. Safety plan also discussed and updated accordingly. [place]: Not able to accept [place]: States they will call back with decision [place]: No beds [facility]: Referral faxed [facility] [place]: Awaiting decision. 1. May remain in her own clothing. 2. Pt to remain in the room at this time under direct supervision at all times by ELVIN, AIRCRAFT ENGINE MECHANIC SUPERVISOR absorber operator. 3. May have paper cups, plates, finger foods as well as a metal spoon with which to eat meals. [facility] staff will be responsible for accounting of utensils after meals. 4. May shower with supervision. 5. No personal belongings in the room 6. May have television and dry erase markers. 7. No visitors at this time. 8. May have supervised phone call with daughter phone to be removed after phone call. 9.Follow [facility] Management of the Admitted Behavioral Health Patient policy printed and attached to the safety plan in physical chart. [facility] will be coordinating placement at inpatient facility. Patient is currently involuntarily at [facility] and seeking inpatient admission when a bed becomes available. [facility] Frontline Chalk Molding Machine Operator will continue seeking placement. Please contact the Construction Consultant Thinner Sprayer ([phone]) and [facility] Chalk Molding Machine Operator ([phone]) for any needed changes in the Safety Plan. Safety plan has been provided to interdepartmental care team including Clinical Coordinator, Nursing Grinder Dresser
[2018-07-06] MEDS: Haloperidol 5 MG TAB PO (11:56)
[2018-07-06] MEDS: LORazepam 1 MG TAB PO (11:56)
--- NOTE | 2018-07-06 12:51 | NUR.NOTE ---
Nursing Note: 1150: pt requesting ativan and haldol at this time. pt wants to quiet my mind although pt denies any hallucinations today. pt allows for vs and assessment at this time. pt taking medications without difficulty. continue to monitor.
[2018-07-06 12:52] VITALS: BP 99/65; PULSE 111; RESP 20; O2SAT 100
--- NOTE | 2018-07-06 16:46 | PDOC.PROG ---
Date of Service: 07/06/18 Time of Service: 16:46 Assessment/Plan - Assessment/Plan (1) Psychosis Plan: She has been taking her medications as prescribed. Continue current regimen. There has been some mild improvement since her initial presentation, however, she remains disorganized and psychotic. Continue to work with mental health for bed placement at a psychiatric facility where she can receive appropriate psychiatric care. Continue safety plan with one-on-one constant visual observation. History of Present Illness - History of Present Illness Chief Complaint: acute psychosis History of Present Illness: Daphne is a 43-year-old female who is currently admitted to the [facility] unit on EE status awaiting an inpatient psychiatric bed. She remains disorganized and psychotic. She has been cooperative and pleasant. She is taking her medications as ordered. Her speech is clear but rambling. Her ideas sound more connected to reality then on her initial presentation, however, she continues to not make a lot of sense. She is fixated on Faisal coming from [place] to get her. She is writing names on the white board. She is medically stable, she is eating and drinking well. She did request ativan and haldol today. Mental health is working on bed placement, there was a possibility that she might be accepted today, but [facility]. She continues to have a safety plan and a 1:1 patient observer. Review of Systems - Review of Systems Other: Unable to answer direct questions related to review of systems. She offers no complaints. - Medications/Allergies Allergies/Adverse Reactions: Allergies Allergy/AdvReac Type Severity Reaction Status Date / Time No Known Allergies Allergy Unverified 06/27/18 20:36 Medications: Current Medications Acetaminophen (Tylenol) 325 - 650 mg PO Q4H PRN PRN Al Hydrox/Mg Hydrox/Simethicone (Mylanta Liquid) 30 ml PO Q2H PRN PRN Albuterol Sulfate (Proventil Updraft) 2.5 mg UPD Q2H PRN PRN Albuterol/Ipratropium (Duoneb Updraft) 3 ml UPD Q6H PRN PRN Dimethicone/Zinc Oxide (Nelsy Protect Cream) 0 gm TP PRN PRN Divalproex Sodium (Depakote Er) 1,000 mg PO HS [facility] Last Admin: 07/05/18 20:06 Dose: 1,000 mg Divalproex Sodium (Depakote Er) 250 mg PO HS [facility] Last Admin: 07/05/18 20:06 Dose: 250 mg Docusate Sodium (Colace) 100 mg PO TID PRN PRN Haloperidol (Haldol) 5 mg PO TID PRN PRN Last Admin: 07/06/18 11:56 Dose: 5 mg Haloperidol Lactate (Haldol Injection) 5 mg IM Q4H PRN PRN Lorazepam (Ativan) 1 mg PO TID PRN PRN Last Admin: 07/06/18 11:56 Dose: 1 mg Lorazepam (Ativan Injection) 1 mg IM Q3H PRN PRN Magnesium Hydroxide (Milk Of Magnesia) 30 ml PO DAILY PRN PRN Nicotine (Nicotrol) 10 mg IH Q2H PRN PRN Last Admin: 07/06/18 14:15 Dose: 10 mg Nicotine (Nicoderm Cq) 14 mg TD DAILY PRN PRN Last Admin: 07/05/18 20:03 Dose: 14 mg Polyethylene Glycol (Miralax) 17 gm PO DAILY PRN PRN PRN Reason: Constipation Quetiapine Fumarate (Seroquel) 100 mg PO BID [facility] Last Admin: 07/06/18 07:54 Dose: 100 mg Objective - Exam Vitals and I&O: Vital Signs Temp 36.2 C L 07/05/18 16:09 Pulse 111 H 07/06/18 12:52 Resp 20 07/06/18 12:52 BP 99/65 07/06/18 12:52 Pulse Ox 100 07/06/18 12:52 Intake & Output 07/05/18 07/06/18 07/06/18 23:59 11:59 23:59 Intake Total 1440 440 Balance 1440 440 Intake: Oral 1440 440 Other: Urine Color Yellow Urine Appearance Clear Urine Odor None Comment voided in the toilet pt voiding ad ujnito in toilet; not assessed by RN Voiding Methods Toilet Toilet General: Alert, Cooperative, No acute distress. denies: Oriented x3 HEENT: Atraumatic, Mucous membr. moist/pink Neck: Supple. denies: JVD Lungs: Other (She refused physical exam, she states Fabiola, her nurse already did that and everything was fine.) Cardiovascular: Other (refused exam) Neurological: Normal gait, Normal speech (speech is clear but rambling, thoughts are disorganized.), Strength at 5/5 X4 ext, Normal tone Psych/Mental Status: denies: Mental status NL - Results Results: Laboratory Results WBC 10.19 k/cumm (4.4-10.8) 06/28/18 06:40 RBC 5.15 m/cumm (4.00-5.20) 06/28/18 06:40 Hgb 16.6 g/dL (12.0-15.5) H 06/28/18 06:40 Hct 46.9 % (36.0-46.0) H 06/28/18 06:40 MCV 91.1 fL (80-95) 06/28/18 06:40 MCH 32.2 pg (27.0-33.0) 06/28/18 06:40 MCHC 35.4 g/dL (32.0-36.0) 06/28/18 06:40 RDW 12.9 % (11.7-14.6) 06/28/18 06:40 Plt Count 202 x1000/uL (130-400) 06/28/18 06:40 MPV 12.6 fL (8.0-11.0) H 06/28/18 06:40 Immature Gran % 0.3 06/27/18 03:20 Neutrophils % 78.0 06/27/18 03:20 Lymphocytes % 13.5 06/27/18 03:20 Monocytes % 7.7 06/27/18 03:20 Eosinophils % 0.3 06/27/18 03:20 Basophils % 0.2 06/27/18 03:20 Absolute Neutrophils 9.65 k/cumm (1.2-6.7) H 06/27/18 03:20 Absolute Lymphocytes 1.67 k/cumm (1.2-3.4) 06/27/18 03:20 Absolute Monocytes 0.95 k/cumm (0.11-0.7) H 06/27/18 03:20 Absolute Eosinophils 0.04 k/cumm (0.0-0.7) 06/27/18 03:20 Absolute Basophils 0.02 k/cumm (0.0-0.2) 06/27/18 03:20 Sodium 138 mmol/L (136-145) 06/27/18 03:20 Potassium 4.1 mmol/L (3.5-5.1) 06/27/18 03:20 Chloride 101 mmol/L (98-107) 06/27/18 03:20 Carbon Dioxide 26.4 mmol/L (21.0-32.0) 06/27/18 03:20 Anion Gap 10.6 mmol/L (3-11) 06/27/18 03:20 BUN 12 mg/dL (7-18) 06/27/18 03:20 Creatinine 0.96 mg/dL (0.55-1.02) 06/27/18 03:20 Estimated GFR/1.73 m2 >= 60.00 (mL/min/1.73m2) 06/27/18 03:20 Glucose 110 mg/dL (70-100) H 06/27/18 03:20 Calcium 8.9 mg/dL (8.5-10.1) 06/27/18 03:20 Total Bilirubin 0.6 mg/dL (0.2-1.0) 06/27/18 03:20 AST 26 U/L (15-37) 06/27/18 03:20 ALT 38 U/L (12-78) 06/27/18 03:20 Alkaline Phosphatase 59 U/L (46-116) 06/27/18 03:20 Total Protein 7.4 g/dL (6.4-8.2) 06/27/18 03:20 Albumin 3.7 g/dL (3.4-5.0) 06/27/18 03:20 TSH 0.87 uIU/mL (0.358-3.74) 06/27/18 03:20 Serum HCG, Qual Negative 06/27/18 03:20 Salicylates 8.8 mg/dL (2.8-20.0) 06/27/18 06:25 Urine Opiates Screen Cancelled 07/04/18 07:38 Urine Methadone Screen Cancelled 07/04/18 07:38 Acetaminophen < 2 ug/mL (10-30) L 06/27/18 03:20 Ur Barbiturates Screen Cancelled 07/04/18 07:38 Total Valproic Acid 18.3 ug/mL (50-100) L 07/03/18 20:54 Ur Tricyclics Screen Cancelled 07/04/18 07:38 Ur Amphetamines Screen Cancelled 07/04/18 07:38 U Benzodiazepines Scrn Cancelled 07/04/18 07:38 Urine Cocaine Screen Cancelled 07/04/18 07:38 Ur THC Screen Cancelled 07/04/18 07:38 Ethyl Alcohol < 3.0 mg/dL (<3) 06/27/18 03:20
--- NOTE | 2018-07-06 16:51 | PDOC.PROG_ITS ---
Date of Service: 07/06/18 Time of Service: 16:46 Assessment/Plan - Assessment/Plan (1) Psychosis Plan: She has been taking her medications as prescribed. Continue current regimen. There has been some mild improvement since her initial presentation, however, she remains disorganized and psychotic. Continue to work with mental health for bed placement at a psychiatric facility where she can receive appropriate psychiatric care. Continue safety plan with one-on-one constant visual observation. History of Present Illness - History of Present Illness Chief Complaint: acute psychosis History of Present Illness: Daphne is a 43-year-old female who is currently admitted to the [facility] unit on EE status awaiting an inpatient psychiatric bed. She remains disorganized and psychotic. She has been cooperative and pleasant. She is taking her medications as ordered. Her speech is clear but rambling. Her ideas sound more connected to reality then on her initial presentation, however, she continues to not make a lot of sense. She is fixated on Faisal coming from [place] to get her. She is writing names on the white board. She is medically stable, she is eating and drinking well. She did request ativan and haldol today. Mental health is working on bed placement, there was a possibility that she might be accepted today, but we have not heard back from mental [facility] as of yet. She continues to have a safety plan and a 1:1 patient observer. Review of Systems - Review of Systems Other: Unable to answer direct questions related to review of systems. She offers no complaints. - Medications/Allergies Allergies/Adverse Reactions: Allergies Allergy/AdvReac Type Severity Reaction Status Date / Time No Known Allergies Allergy Unverified 06/27/18 20:36 Medications: Current Medications Acetaminophen (Tylenol) 325 - 650 mg PO Q4H PRN PRN Al Hydrox/Mg Hydrox/Simethicone (Mylanta Liquid) 30 ml PO Q2H PRN PRN Albuterol Sulfate (Proventil Updraft) 2.5 mg UPD Q2H PRN PRN Albuterol/Ipratropium (Duoneb Updraft) 3 ml UPD Q6H PRN PRN Dimethicone/Zinc Oxide (Nelsy Protect Cream) 0 gm TP PRN PRN Divalproex Sodium (Depakote Er) 1,000 mg PO HS [facility] Last Admin: 07/05/18 20:06 Dose: 1,000 mg Divalproex Sodium (Depakote Er) 250 mg PO HS [facility] Last Admin: 07/05/18 20:06 Dose: 250 mg Docusate Sodium (Colace) 100 mg PO TID PRN PRN Haloperidol (Haldol) 5 mg PO TID PRN PRN Last Admin: 07/06/18 11:56 Dose: 5 mg Haloperidol Lactate (Haldol Injection) 5 mg IM Q4H PRN PRN Lorazepam (Ativan) 1 mg PO TID PRN PRN Last Admin: 07/06/18 11:56 Dose: 1 mg Lorazepam (Ativan Injection) 1 mg IM Q3H PRN PRN Magnesium Hydroxide (Milk Of Magnesia) 30 ml PO DAILY PRN PRN Nicotine (Nicotrol) 10 mg IH Q2H PRN PRN Last Admin: 07/06/18 14:15 Dose: 10 mg Nicotine (Nicoderm Cq) 14 mg TD DAILY PRN PRN Last Admin: 07/05/18 20:03 Dose: 14 mg Polyethylene Glycol (Miralax) 17 gm PO DAILY PRN PRN PRN Reason: Constipation Quetiapine Fumarate (Seroquel) 100 mg PO BID [facility] Last Admin: 07/06/18 07:54 Dose: 100 mg Objective - Exam Vitals and I&O: Vital Signs Temp 36.2 C L 07/05/18 16:09 Pulse 111 H 07/06/18 12:52 Resp 20 07/06/18 12:52 BP 99/65 07/06/18 12:52 Pulse Ox 100 07/06/18 12:52 Intake & Output 07/05/18 07/06/18 07/06/18 23:59 11:59 23:59 Intake Total 1440 440 Balance 1440 440 Intake: Oral 1440 440 Other: Urine Color Yellow Urine Appearance Clear Urine Odor None Comment voided in the toilet pt voiding ad junito in toilet; not assessed by RN Voiding Methods Toilet Toilet General: Alert, Cooperative, No acute distress. denies: Oriented x3 HEENT: Atraumatic, Mucous membr. moist/pink Neck: Supple. denies: JVD Lungs: Other (She refused physical exam, she states Fabiola, her nurse already did that and everything was fine.) Cardiovascular: Other (refused exam) Neurological: Normal gait, Normal speech (speech is clear but rambling, thoughts are disorganized.), Strength at 5/5 X4 ext, Normal tone Psych/Mental Status: denies: Mental status NL - Results Results: Laboratory Results WBC 10.19 k/cumm (4.4-10.8) 06/28/18 06:40 RBC 5.15 m/cumm (4.00-5.20) 06/28/18 06:40 Hgb 16.6 g/dL (12.0-15.5) H 06/28/18 06:40 Hct 46.9 % (36.0-46.0) H 06/28/18 06:40 MCV 91.1 fL (80-95) 06/28/18 06:40 MCH 32.2 pg (27.0-33.0) 06/28/18 06:40 MCHC 35.4 g/dL (32.0-36.0) 06/28/18 06:40 RDW 12.9 % (11.7-14.6) 06/28/18 06:40 Plt Count 202 x1000/uL (130-400) 06/28/18 06:40 MPV 12.6 fL (8.0-11.0) H 06/28/18 06:40 Immature Gran % 0.3 06/27/18 03:20 Neutrophils % 78.0 06/27/18 03:20 Lymphocytes % 13.5 06/27/18 03:20 Monocytes % 7.7 06/27/18 03:20 Eosinophils % 0.3 06/27/18 03:20 Basophils % 0.2 06/27/18 03:20 Absolute Neutrophils 9.65 k/cumm (1.2-6.7) H 06/27/18 03:20 Absolute Lymphocytes 1.67 k/cumm (1.2-3.4) 06/27/18 03:20 Absolute Monocytes 0.95 k/cumm (0.11-0.7) H 06/27/18 03:20 Absolute Eosinophils 0.04 k/cumm (0.0-0.7) 06/27/18 03:20 Absolute Basophils 0.02 k/cumm (0.0-0.2) 06/27/18 03:20 Sodium 138 mmol/L (136-145) 06/27/18 03:20 Potassium 4.1 mmol/L (3.5-5.1) 06/27/18 03:20 Chloride 101 mmol/L (98-107) 06/27/18 03:20 Carbon Dioxide 26.4 mmol/L (21.0-32.0) 06/27/18 03:20 Anion Gap 10.6 mmol/L (3-11) 06/27/18 03:20 BUN 12 mg/dL (7-18) 06/27/18 03:20 Creatinine 0.96 mg/dL (0.55-1.02) 06/27/18 03:20 Estimated GFR/1.73 m2 >= 60.00 (mL/min/1.73m2) 06/27/18 03:20 Glucose 110 mg/dL (70-100) H 06/27/18 03:20 Calcium 8.9 mg/dL (8.5-10.1) 06/27/18 03:20 Total Bilirubin 0.6 mg/dL (0.2-1.0) 06/27/18 03:20 AST 26 U/L (15-37) 06/27/18 03:20 ALT 38 U/L (12-78) 06/27/18 03:20 Alkaline Phosphatase 59 U/L (46-116) 06/27/18 03:20 Total Protein 7.4 g/dL (6.4-8.2) 06/27/18 03:20 Albumin 3.7 g/dL (3.4-5.0) 06/27/18 03:20 TSH 0.87 uIU/mL (0.358-3.74) 06/27/18 03:20 Serum HCG, Qual Negative 06/27/18 03:20 Salicylates 8.8 mg/dL (2.8-20.0) 06/27/18 06:25 Urine Opiates Screen Cancelled 07/04/18 07:38 Urine Methadone Screen Cancelled 07/04/18 07:38 Acetaminophen < 2 ug/mL (10-30) L 06/27/18 03:20 Ur Barbiturates Screen Cancelled 07/04/18 07:38 Total Valproic Acid 18.3 ug/mL (50-100) L 07/03/18 20:54 Ur Tricyclics Screen Cancelled 07/04/18 07:38 Ur Amphetamines Screen Cancelled 07/04/18 07:38 U Benzodiazepines Scrn Cancelled 07/04/18 07:38 Urine Cocaine Screen Cancelled 07/04/18 07:38 Ur THC Screen Cancelled 07/04/18 07:38 Ethyl Alcohol < 3.0 mg/dL (<3) 06/27/18 03:20
--- NOTE | 2018-07-06 18:53 | DISCHARGE ---
Discharge - Discharge Orders Referrals: Astrid Swan MD [Primary Care Provider] - Gerald Barry [Other] - Discharge Plan Disposition: [facility] Condition: Stable Diet:: Normal Diet Equipment/Supplies:: No Equipment Needed Activity:: Activity as Tolerated - Instructions Micromedex Instructions: Brief Psychotic Disorder (DC)
--- NOTE | 2018-07-06 18:55 | PDOC.MHCN ---
Date of Service: 07/06/18 Time of Service: 18:55 Presenting Issue: *How did they arrive here at ER and why did they come: Patient remains at [facility] on EE status. Precipitating Factors: *Assessment of Safety SI/HI (address delusions if pertaining to the SI/HI) Patient denies current SI or HI. She remains psychotic and perseverates on the truth being the truth. Her thought process is disorganized and her speech is pressured and rambling. Tonight she is also fixated on the names of hospital and mental health staff, repeating over and over again that Denia is Denia, Molly is Molly, Liss is Liss, etc. Disposition: *Behavior: Cooperative. *Eye Contact: Good. *Mood: Calm. *Affect: Congruent to mood. *Appetite: Reported as good. *Sleep (trouble falling/staying asleep): Good. Plan: [facility] accepts patient for admission. Transport is done via senior geotechnical engineer.
--- NOTE | 2018-07-06 18:57 | PDOC.DISCH_ITS ---
Discharge - Discharge Orders Referrals: Astrid Swan MD [Primary Care Provider] - Gerald Barry [Other] - Discharge Plan Disposition: [facility] Condition: Stable Diet:: Normal Diet Equipment/Supplies:: No Equipment Needed Activity:: Activity as Tolerated - Instructions Mic[employer]ed[employer] Instructions: Brief Psychotic Disorder (DC)
--- NOTE | 2018-07-06 19:03 | PDOC.MHCN_ITS ---
Date of Service: 07/06/18 Time of Service: 18:55 Presenting Issue: *How did they arrive here at ER and why did they come: Patient remains at [facility] on EE status. Precipitating Factors: *Assessment of Safety SI/HI (address delusions if pertaining to the SI/HI) Patient denies current SI or HI. She remains psychotic and perseverates on the truth being the truth. Her thought process is disorganized and her speech is pressured and rambling. Tonight she is also fixated on the names of hospital and mental health staff, repeating over and over again that Denia is Denia, Molly is Molly, Liss is Liss, etc. Disposition: *Behavior: Cooperative. *Eye Contact: Good. *Mood: Calm. *Affect: Congruent to mood. *Appetite: Reported as good. *Sleep (trouble falling/staying asleep): Good. Plan: [facility] accepts patient for admission. Transport is done via line maintenance supervisor.
--- NOTE | 2018-07-07 14:47 | DSE_ITS ---
DATE OF ADMISSION: June 27, 2018 DATE OF DISCHARGE: July 06, 2018 REASON FOR ADMISSION: Acute psychosis. HOSPITAL COURSE: Daphne Schultz is a 42-year-old female with a reported history of schizophrenia who was brought to the Emergency Department on 06/27/18 by [facility] early in the morning. Appare ntly the [facility] Police were called to a field where she and her boyfriend had been camping. Bhargavi pappas boyfriend reported at that time to [facility] that she had a history of schizophrenia an d had not been taking her medications. He was unable to calm her down. She was speaking nonstop. S he was not making sense. She was screaming and yelling and then whispering. She was referring to he rself in the third person. When she came into the Emergency Department, they were unable to obtain a ny type of medical or surgical history from the patient, or what medications she normally took. An EKG was obtained; she was noted to be in normal sinus rhythm with a heart rate of 100 bpm. She guerrero d a normal QT segment. She had evidence of right atrial enlargement. She had no acute ST changes. Her laboratory studies in the Emergency Department were unremarkable. Her initial aspirin level was 10; repeat level was 8.8. There was an attempt made by the Emergency Department to obtain a urine dr ug screen, however Daphne would not provide a urine sample. She was seen by Mental Health in the Emergency Department and was determined to be a threat to hersel f or others and EE paperwork was completed by the Emergency Department physician. Mental Health atte mpted to place her at a psychiatric facility for stabilization; however they were unable to find a be d for her. She was in the Emergency Department for several hours until she was admitted to the Med/S urg floor on Observation Status. Mental Health continued to attempt to place her at a psychiatric fa cility. On admission she was noted to have some loose pills in the bottom of her purse. She had Propranolol and Trazodone tablets. 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 Nursing was able to talk to bhargavi gilbertienpito and determine who her primary care provider was in [place], as well as her pharmacy. T hat information was used to determine what medications she typically takes, and based on that she was started on Seroquel and Depakote. She also received Haldol and Ativan as needed. She was compliant with taking medications, except one day when she refused this week. Otherwise she took the medicati ons and in fact on the day of discharge she asked for Lorazepam and Haldol at one point. She remained psychotic and disorganized on the day of discharge; however she was able to somewhat int eract and seemed more connected with reality by the day of discharge. She continued to not make very much sense with her speech. Her speech was clear but again, disorganized. While she was here in the hospital she had a safety plan that was maintained. She continued to have constant one-on-one visual observation. On the evening of 07/06/18 [facility] was able to find a b ed for her and she was transferred to [facility] for further evaluation and management. SIGNIFICANT TEST RESULTS: Her valproic acid level was drawn on 07/03/18 and was found to be low at 18.3. Her initial white blood cell count was 12.37, which came down nicely to 10.19; her H and H remained e levated at 16.6 and 46.9 and platelet count was 202,000. Her electrolytes were within normal limits; her BUN and creatinine were normal at 12 and 0.96. Her s mak HCG was negative. Her TSH was 0.87. She never submitted urine for a urine drug screen. DISCHARGE DIAGNOSES: 1. Acute psychosis with a reported history of schizophrenia, not adherent to her medication regimen, however her exact psychiatric diagnosis is not entirely clear. DISCHARGE MEDICATIONS: She was discharged to [facility] on Seroquel and Depakote with p.r.n. Ativan and Haldol . DISPOSITION: Daphne Schultz is discharged to [facility] where she will receive appropriate psychiatric care and stabilization. This case was discussed with Dr. Freitas, who is in agreement.
== END 2018-07-06 19:33 | disposition short-term general hospital (02) | DRG 885 ==
LOC: MS 07-15 22:19 → ER 07-15 22:19
PROVIDERS: Nurse Practitioner; Admitting Provider Internal Medicine; Emergency Provider Emergency Medicine; PCP Internal Medicine; Visit Provider Family Medicine
DX: F23 Brief psychotic disorder (principal); F20.9 Schizophrenia, unspecified; Z91.14 Patient's other noncompliance with medication regimen; Z75.1 Person awaiting admission to adequate facility elsewhere
CPT/HCPCS: 36415; 80053; 80307; 85027; 93005; 96372; 99285; 80164; 80320; 80329; 84443; 84703; 85025; 93010; 99219; 99225; 99231; 99232; G0378; J1630; J2060